=== PATIENT | female | born 1985 | race Caucasian/White ===

== ENCOUNTER 2022-06-10 16:05 | Emergency (ER) | payer OTHER, SELFPAY ==
[2022-06-10 16:17] VITALS: BP 131/77; PULSE 85; RESP 20; TEMP 36.6; O2SAT 98
[2022-06-10] MEDS: diphenhydrAMINE HCl CAP 25 MG CAPSULE PO (16:32)
[2022-06-10] MEDS: methylPREDNISolone SOD SUCC 125 MG VIAL IM (16:32)
[2022-06-10 16:49] VITALS: BP 121/71; PULSE 85; RESP 20; O2SAT 97
--- NOTE | 2022-06-10 17:12 | ED.ALLEREA ---
HPI - Allergic Reaction General Chief complaint: Allergic Reaction Stated complaint: allergic reaction, hard time breathing Time Seen by Provider: 06/10/22 16:08 Source: patient and RN notes reviewed Mode of arrival: ambulatory Limitations: no limitations History of Present Illness MD complaint: allergic reaction and hives Onset (ago): hour(s) (2) Exposure: medication Symptoms: rash and itching Severity: mild Treatment prior to arrival: benadryl Previous Allergic Reaction History: prior ED visit(s) Related Data Home Medications Medication Instructions Recorded Confirmed cetirizine 10 mg tablet (Zyrtec) 10 mg PO DAILY PRN Itching 01/28/22 06/10/22 diphenhydramine HCl 25 mg capsule 25 mg PO TID PRN Itching 06/10/22 06/10/22 (Benadryl) loratadine 10 mg tablet (Claritin) 10 mg PO DAILY 06/10/22 06/10/22 Allergies Allergy/AdvReac Type Severity Reaction Status Date / Time rabbit dander Allergy Severe Throat Verified 06/10/22 16:24 closes shut Review of Systems Review of Systems: All systems reviewed & are unremarkable except as noted in HPI and below Constitutional: Constitutional: Reports no additional constitutional complaints Eyes: Eyes: Reports no additional eye complaints ENT: Reports system reviewed and no additional complaints, except as documented Cardiovascular: Cardiovascular: Reports no additional cardiovascular complaints Respiratory: Respiratory: Reports no additional respiratory complaints Gastrointestinal: Gastrointestinal: Reports no additional gastrointestinal complaints Genitourinary: Genitourinary: Reports no additional female genitourinary complaints Musculoskeletal: Musculoskeletal: Reports no additional musculoskeletal complaints Integumentary/Breasts: Skin/Breast: Reports system reviewed and no additional complaints, except as docu Neurologic: Reports system reviewed and no additional complaints, except as documented Psychiatric: Psychiatric: Reports no additional psychiatric complaints Endocrine: Endocrine: Reports no additional endocrine complaints Hematologic/Lymphatic: Hematologic/Lymphatic: Reports no additional hematologic/lymphatic complaints Allergic/Immunologic: Allergic/Immunologic: Reports no additional allergic/immunologic complaints Comments: resolving hives. [facility] Past Medical History Medical History (Updated 06/10/22 @ 17:28 by Bianca Krishna MD) Allergic drug rash Contusion of foot including toes Surgical History Surgical History H/O removal of cyst Family History Family History Other Cerebrovascular accident Depression Diabetes mellitus Social History Social History Smoking packs per day: 0.5 Smoking cigarettes per day: 10.0 Years smoked: 15 Smoking pack-years: 7.50 Smoking status: Current every day smoker Tobacco type: cigarettes Alcohol intake: current Substance use: current Substance use type: marijuana Exam Const: General: no acute distress and well nourished Nutritional Appearance: well nourished Orientation/consciousness: patient oriented x3 Limitations: no limitations HENMT: Head: normal to inspection Ears: external ears normal, TM's normal bilaterally and EAC's normal Face/Nose/Sinus: Normal external nose present, Normal nares present, normal facial exam and sinuses nontender Face and sinus: normal facial exam and sinuses nontender Mouth: Yes Normal oral and palatal mucosa present and Yes moist mucous membranes Teeth and gingiva: dentition normal Throat: posterior oropharynx normal Eyes: Conjunctivae: conjunctivae normal Pupils: Equal, round and reactive pupils present EOM: EOMs intact bilaterally Neck: Neck: normal visual inspection, no lymphadenopathy and no meningeal signs Chest: Chest palpation & inspection: normal inspection
[2022-06-10 17:36] VITALS: BP 121/57; PULSE 87; RESP 17; TEMP 36.8; O2SAT 100
== END 2022-06-10 17:58 | disposition home or self-care (01) ==
PROVIDERS: Emergency Provider Emergency Medicine
DX: T78.40XA Allergy, unspecified, initial encounter (principal); F17.200 Nicotine dependence, unspecified, uncomplicated
CPT/HCPCS: 96372; 99283; A9270; J2930

== ENCOUNTER 2022-11-30 07:52 | Outpatient (CLI) | payer BC, SELFPAY ==
--- NOTE | ~2022-11-30 | XR_ITS ---
EXAMINATION: XR wrist RT min 3V DATE: 11/30/2022 08:06 INDICATION: Right wrist pain and numbness TECHNIQUE: Posteroanterior, ulnar deviation, oblique, and lateral views of the right wrist were obtai mary. COMPARISON: none FINDINGS: Alignment is normal. No fracture. Joint spaces are normal. Soft tissues are unremarkable. IMPRESSION: 1. Negative right wrist radiographs. Reviewed, dictated and finalized at location A.
== END 2022-11-30 07:53 | disposition home or self-care (01) ==
LOC: CHSIMG 07:55
PROVIDERS: PCP Nurse Practitioner Family; Visit Provider Orthopaedic Surgery
DX: M25.531 Pain in right wrist (principal)
CPT/HCPCS: 73110

== ENCOUNTER 2023-01-14 13:17 | Outpatient (CLI) | payer BC, SELFPAY ==
--- NOTE | 2023-01-14 14:15 | NEURO_ITS ---
Impression: # Complains of nocturnal paresthesia of hands. # No Carpal Tunnel Syndrome. 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 # Normal needle/EMG. Nerve Conduction Studies Anti Sensory Summary Table Stim Site NR Peak (ms) P-T Amp (?V) Site1 Site2 Delta-P (ms) Dist (cm) Shashank (m/s) Left Median Anti Sensory (2-3nd Digit) Wrist 3.0 87.6 Wrist 2-3nd Digit 3.0 14.0 47 Wrist 2.9 90.9 Wrist 2-3nd Digit 3.0 14.0 47 Right Median Anti Sensory (2-3nd Digit) Wrist 2.9 91.7 Wrist 2-3nd Digit 2.9 14.0 48 Wrist 2.9 79.1 Wrist 2-3nd Digit 2.9 14.0 48 Left Radial Anti Sensory (Base 1st Digit) Wrist 1.6 84.2 Wrist Base 1st Digit 1.6 0.0 Right Radial Anti Sensory (Base 1st Digit) Wrist 2.1 42.2 Wrist Base 1st Digit 2.1 0.0 Left Ulnar Anti Sensory (5th Digit) Wrist 2.3 80.0 Wrist 5th Digit 2.3 14.0 61 Right Ulnar Anti Sensory (5th Digit) Wrist 2.2 88.2 Wrist 5th Digit 2.2 14.0 64 Motor Summary Table Stim Site NR Onset (ms) O-P Amp (mV) Site1 Site2 Delta-0 (ms) Dist (cm) Shashank (m/s) Left Median Motor (Abd Poll Brev) Wrist 2.8 5.7 Elbow Wrist 5.2 28.0 54 Elbow 8.0 2.8 Right Median Motor (Abd Poll Brev) Wrist 2.7 7.9 Elbow Wrist 4.6 28.0 61 Elbow 7.3 3.6 Left Ulnar Motor (Abd Dig Minimi) Wrist 2.4 9.9 A Elbow Wrist 5.1 28.0 55 A Elbow 7.5 7.9 B Elbow Wrist 3.5 20.0 57 B Elbow 5.9 5.2 Right Ulnar Motor (Abd Dig Minimi) Wrist 2.5 4.1 A Elbow Wrist 4.9 29.0 59 A Elbow 7.4 4.2 F Wave Studies NR F-Lat (ms) L-R F-Lat (ms) Left Median (Mrkrs) (Abd Poll Brev) 25.19 1.75 Right Median (Mrkrs) (Abd Poll Brev) 23.44 1.75 Left Ulnar (Mrkrs) (Abd Dig Min) 24.40 0.73 Right Ulnar (Mrkrs) (Abd Dig Min) 23.67 0.73 EMG Side Muscle Nerve Root Ins Act Fibs Amp Dur Recrt Comment Right 1stDorInt Ulnar C8-T1 Nml Nml Nml Nml Nml Right Ext Indicis Radial (Post Int) C7-8 Nml Nml Nml Nml Nml Right Ext Digitorum Radial (Post Int) C7-8 Nml Nml Nml Nml Nml Right BrachioRad Radial C5-6 Nml Nml Nml Nml Nml Right PronatorTeres Median C6-7 Nml Nml Nml Nml Nml Right Abd Poll Brev Median C8-T1 Nml Nml Nml Nml Nml Left 1stDorInt Ulnar C8-T1 Nml Nml Nml Nml Nml Left Ext Indicis Radial (Post Int) C7-8 Nml Nml Nml Nml Nml Left Ext Digitorum Radial (Post Int) C7-8 Nml Nml Nml Nml Nml Left BrachioRad Radial C5-6 Nml Nml Nml Nml Nml Left PronatorTeres Median C6-7 Nml Nml Nml Nml Nml Left Abd Poll Brev Median C8-T1 Nml Nml Nml Nml Nml Right ABD Dig Min Ulnar C8-T1 Nml Nml Nml Nml Nml Left ABD Dig Min Ulnar C8-T1 Nml Nml Nml Nml Nml MTDD
== END 2023-01-14 13:18 | disposition home or self-care (01) ==
PROVIDERS: PCP Nurse Practitioner Family; Visit Provider Orthopaedic Surgery
DX: R20.0 Anesthesia of skin (principal); G56.22 Lesion of ulnar nerve, left upper limb
CPT/HCPCS: 95886; 95911

== ENCOUNTER 2025-01-22 12:14 | Outpatient (CLI) | payer BC, SELFPAY ==
--- NOTE | ~2025-01-22 | XR_ITS ---
Right foot Technique: AP, oblique, and lateral views were obtained. Clinical History: Injury Findings: No acute fracture or dislocation is seen. Osseous alignment is anatomic. Joint spaces are p reserved without erosive or degenerative change. Soft tissues are unremarkable. Impression: Unremarkable right foot radiographs. Reviewed, dictated and finalized at location . Impression: Unremarkable right foot radiographs.
--- NOTE | ~2025-01-22 | XR_ITS ---
Right ankle Technique: AP, oblique, and lateral views were obtained. Clinical History: Injury Findings: No acute fracture or dislocation is seen. Osseous alignment is anatomic. Ankle mortise and other visualized joint spaces are preserved. Soft tissues are otherwise unremarkable. Impression: Unremarkable right ankle. Reviewed, dictated and finalized at location . Impression: Unremarkable right ankle.
--- OUTSIDE RECORDS SUMMARY | 2025-01-22 12:17 | XMS_ITS | Clinical Summary ---
Author Organization [facility] [address] Address [address] [place] [address] Phone Care Team Providers Care Sports Physical Therapist Name Role Phone Farnaz Gely Ugarte NP Primary Care Provider [phone] Allergies No known active allergies Medications fexofenadine (KENDY) 180 mg tablet Take 1 tablet (180 mg total) by mouth daily Active levonorgestrel (MIRENA) IUD 1 each by intrauterine route once Active montelukast (SINGULAIR) 10 mg tablet 2 Active cetirizine (ZyrTEC) 10 mg tablet daily Active EPINEPHrine 0.3 mg/0.3 mL auto-injection syringe INJECT 1 SYRINGE IN THE MUSCLE ONCE DIRECTED 2 Active clindamycin (CLEOCIN T) 1 % lotion Apply topically 2 (two) times a day 60 mL 1 3 Active Additional Information Patient not taking.Reported on 09/15/2024 Active Problems No known active problems Immunizations Immunization Administration Dates Next Due Influenza, Trivalent, IM (MDV) 05/19/2018 Pneumococcal Polysaccharide PPV23 05/19/2018 Surgical History Surgery Date Site/Laterality Comments LAPAROSCOPIC TUBAL LIGATION 07/12/2010 - 07/11/2011 FISTULA REPAIR 07/12/2003 - 07/11/2004 Right thigh; probably secondary to hidradenitis suppurativa Medical History Medical History Date Comments Seasonal allergies Hidradenitis suppurativa History of condyloma acuminatum 2006 treated with TCA Abnormal Pap smear of cervix 2003 cry otherapy Positive test for herpes simplex virus (HSV) ant ibody type I; no known lesions Family History Medical History Relation Name Comments Diabetes Maternal Grandfather Breast cancer Maternal Grandmother Diabetes Maternal Grandmother Heart attack Maternal Grandmother late 40 's Hypertension Maternal Grandmother Stroke Maternal Grandmother Breast cancer Mother's Sister 30's Stroke Mother's Sister late 30's Hyperlipidemia Other both sides of the family Diabetes Paternal Grandmother Relation Name Status Comments Maternal Grandfather Maternal Grandmother Mother's Sister Other Paternal Grandmother Social History Tobacco Use Types Packs/Day Years Used Date Smoking Tobacco: Every Day E-cigarettes Passive Smoke Exposure: Never Smokeless Tobacco: Never Comments:E-Cig & cigars Alcohol Use Standard Drinks/Week Comments Yes 0 (1 standard drink = 0.6 oz pur e alcohol) weekends Comments No Sex and Gender Information Value Date Recorded Sex Assigned at Not on file Legal Sex Female 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 [employer] Gender Identity Not on file Sexual Orientation Not on file 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 Insurance Not on file Not on file Not on file Obstetrics History Para Term AB IAB SAB Ectopic Multiple Livin g Live Births 1 1 1 0 0 0 0 0 0 1 1 Date Outcome GA Total Labor Labor/2nd/3rd Weight Sex Type Anes PTL Jamia A1 A5 Name Clin Term Last Filed Vital Signs Vital Sign Reading Time Taken Comments Blood Pressure 126/70 09/15/2024 10:38 AM [employer] Pulse 87 10/04/2017 2:49 PM CDT Temperature 36.2 C (97.1 F) 07/22/2020 1:19 PM [employer] Respiratory Rate 16 06/08/2017 2:54 PM [employer] Oxygen Saturation 98% 06/08/2017 2:54 PM [employer] Inhaled Oxygen Concentration - - Weight 90.3 kg (199 lb) 09/15/2024 10:38 AM [employer] Height 174 cm (5' 8.5) 09/15/2024 10:38 AM [employer] Body Mass Index 29.82 09/15/2024 10:38 AM [employer] Plan of Treatment Health Maintenance Due Date Last Done Comments Depression Screening 1985 Hepatitis C Screening 1985 DTaP/Tdap/Td Vaccine (1 - Tdap) 1996 Varicella Vaccines (1 of 2 - 13+ 2-dose series) 1998 Hepatitis B Screening 10/19/2003 Pneumococcal vaccine <65 (2 of 2 - PCV) 05/19/2019 05/19/2018 Influenza Vaccine (#1) 2025 05/19/2018 Cervical Cancer Screening 09/15/20252024, 09/15/2024, 06/23/2018, Additional history exists Regular Well Visit/Exam 18-64 09/15/2025 09/15/2024, 08/20/2023, 07/30/2022, Additional history exists HPV Vaccines Aged Out No longer eligi ble based on patient's age to complete this topic Procedures Procedure Name Priority Date/Time Associated Diagnosis Comments HIGH RISK HPV DNA DETECTION WITH GENOTYPING Routine 09/15/2024 1:39 PM MANAGER [employer] Screening for malignant neoplasm of cervix from Last 3 Months or Most Recently Relevant to Health Maintenance Results * High Risk HPV DNA Detection with Genotyping (Molecular component) (09/15/2024 1:39 PM MANAGER [employer]UDENT [employer]) HPV HR 16 Not Detected Not Detected [facility] Comment:Testing performed by : [facility], [address] [place]., [address] HPV HR 18 Not Detected Not Detected [facility] Comment:Testing performed by : [facility], [address] [place] [address]., [address] HPV HR Non 16/18 Not Detected Not Detected [facility] Comment: Interpretive Data Nucleic acid amplification for detection of high-risk Human Papilloma virus (HPV) is performed by the Jn Izabela 6800 HPV test. This assay specifically detects HPV-16 and HPV-18 genotypes. The following HPV genotypes are detected as high-risk HPV: HPV-31, 33, 35, ,39, 45, 51, 52, 56, 58, 59, 66, and 68. This assay has been approved by the [place] Food and Drug Administration for detection of HPV in cervical specimens collected by a physician using an endocervical brush/spatula or cervical broom and placed in the ThinPrep Pap Test PreservCyt collection containers. The performance characteristics of this test have been verified by the [facility] Molecular Infectious Disease laboratory. Correlate with separately reported cytology results, as applicable. Interpretive data last revised 23 Testing performed by: [facility], [address] [facility], [place]., [address] Endocervical 09/15/2024 1:39 PM MANAGER STUDENT SERVICES 09/18/2024 2:17 PM CDT Narrative KATHERYN RIZO - 09/18/2024 8:24 PM CDT Clinical history and diagnosis->Liquid-based PAP test with high risk HPV test- Z12.4 Number of vials->1 Testing type->Screening Last menstrual period (date if known)->N/A Contraceptive use->IUD us Princess Becerril DO LAB BODY FLUIDS AND STO OLS ORDERABLES Final Result KATHERYN [address] [address] Department [place] [address] BJ from Last 3 Months or Most Recently Relevant to Health Maintenance Insurance [employer] [facility] Care Teams Sports Physical Therapist Relationship Specialty Start Date End Date Gely Osei NP [address] [place] [address] PCP - General Nurse Practitioner 01/22/25
--- OUTSIDE RECORDS SUMMARY | 2025-01-22 12:17 | XMS_ITS ---
Author Organization Count Includes [facility] [place] ([address]) Address [address] [place] [address] Care Team Providers Care Operational Trainer Name Role Phone Osei, Gely Primary Care Provider UnavailRussell Joseph Unavailable [phone] Susanne NUNEZ Unavailable Unavailable Rene Browning Unavailable [phone] REASON FOR VISIT SCIT (Aeroallergen) Social History Sex Assigned At : Social History Observation Description Sex Assigned At Female Encounters Encounter Location Date Provider Diagnosis [address] [address] 12/18/2024 Rene Browning Plan Of Treatment Next Appt Details Provider Name:Rene Browning , 01/31/2025 03:30:00 PM, [address] [employer] [address], [address], [place], [address], Provider Name:Rene Browning , 02/28/2025 03:30:00 PM, [address], [address], [place], [address], Provider Name:Alem sotelo, 04/17/2025 09:00:00 AM, [address], [address], [place], [address], Progress Notes * Ijeoma PAULADOB:1985 (39 yo F)Acc No.[id number]:12/18/2024 SCIT-Aeroallergen Patient: Ijeoma AGUILERA Provider: Hui Browning MD :1985 A ge:39 Y S ex:Female Date:12/18/2024 Address:[facility] [place], [place] Pcp:Gely Osei Subjective: * Chief Complaints: * 1 . SCIT (Aeroallergen). * Medical History: Objective: * Vitals: Assessment: Plan: * Treatment: * Billing Information: * Visit Code: * Procedure Codes: * Electronic signature of Tadeo Browning MD, FAAAAI on 01/22/2025 at 12:17 PM CDT Sign off status: Pending * Provider: Hui Browning MD Date: 12/18/2024 Generated for Larryi chuck/Adriel/eTransmitting on: 01/22/2025 12:17 PM CDT
--- OUTSIDE RECORDS SUMMARY | 2025-01-22 12:17 | XMS_ITS | Patient Health Record ---
Author Organization [facility] [place] ([address]) Address [address] [place] [address] Care Team Providers Care Crew Mess Attendant Name Role Phone Farnaz, Gely Primary Care Provider UnavailRussell Joseph Unavailable [phone] Susanne NUNEZ Unavailable Unavailable Rene Browning Unavailable [phone] Shayna Arnold Unavailable [phone] Alem Fabian Unavailable [phone] Allergies No Known Allergies Results Component Value Reference Range Notes Spirometry Reviewed date:10/23/2024 04:44:28 PM Interpretation:Normal Performing Lab: Notes/Report: Normal SpiroPreBronchodilator_FVC 3.99 SpiroPostBronchodilator_FEF25_75 0 SpiroPreBronchodilator_FEF25_75 3.63 SpiroPreBronchodilator_FEV1 3.31 SpiroPrecentPredictionPost_FEF25_75 0 SpiroPrecentPredictionPost_FEV1 0 SpiroPrecentPredictionPost_FEV1_OVER_FVC 0 SpiroPrecentPredictionPost_FVC 0 SpiroPrecentPredictionPre_FEF25_75 102.3 SpiroPrecentPredictionPre_FEV1 99.4 SpiroPrecentPredictionPre_FEV1_OVER_FVC 101.4 SpiroPrecentPredictionPre_FVC 98.5 SpiroPredicted_FEF25_75 3.55 SpiroPreBronchodilator_FEV1_OVER_FVC 83.04 SpiroPreBronchodilator_PEF 5.42 SpiroPostBronchodilator_FVC 0 SpiroPostBronchodilator_FEV1 0 SpiroPostBronchodilator_FEV1_OVER_FVC 0 SpiroPostBronchodilator_PEF 0 SpiroPredicted_FVC 4.05 SpiroPredicted_FEV1 3.33 SpiroPredicted_FEV1_OVER_FVC 81.86 SpiroPredicted_PEF 6.75 Reason For Referral No Information Medications Medication SIG (Take, Route, Frequency, Duration) Notes Start Date End Date Status TRIAMCINOLONE ACETONIDE TOPICAL 0.1% 1 matt applied topically 3 times a day; Duration: 7 day(s) 05/11/2022 Not-Taking FAMOTIDINE 40 mg 1 tab(s) orally 30 mins prior to SCIT; Duration: 30 days Not-Taking SIT (TRADITIONAL) variable per schedule SC per schedule; Duration: to be determined Active Famotidine 40 MG 1 tab(s) orally 30 mins prior to SCIT; Duration: 30 days Not-Taking NASAL WASHES N/A as directed intranasally as needed; Duration: 30 Active Cetirizine HCl 10 MG 1 tab(s) orally once a day; Duration: 30 days Not-Taking EpiPen 2-Roshni 0.3 MG/0.3ML as directed intramuscularly once; Duration: 30 day(s) 06/17/2022 Active SIT (CLUSTER) VARIABLE PER SCHEDULE SC PER SCHEDULE; Duration: TO BE DETERMINED *Please review for potential replacement for e-prescription and drug interaction check* 05/04/2022 Active Albuterol Sulfate HFA 108 (90 Base) MCG/ACT INHALE 2 PUFFS BY MOUTH EVERY 6 HOURS; Duration: 25 Active SIT (TRADITIONAL) VARIABLE PER SCHEDULE SC PER SCHEDULE; Duration: TO BE DETERMINED *Please review for potential replacement for e-prescription and drug interaction check* 09/22/2022 Active Cetirizine HCl 10 MG 1 tab(s) orally twice a day; Duration: 30 days Active KENDY-D 24 HOUR ALLERGY AND CONGESTION 180 MG-240 MG 1 TAB(S) ORALLY ONCE A DAY *Please review for potential replacement for e-prescription and drug interaction check* Not-Taking Olopatadine HCl 0.6 % 2 sprays in each nostril Nasally Twice a day; Duration: 30 days Active Triamcinolone Acetonide 0.1 % 1 matt applied topically 3 times a day; Duration: 7 day(s) 05/11/2022 Not-Taking Auvi-Q 0.3 MG/0.3ML as directed intramuscularly once; Duration: 30 days Active Fluticasone Propionate 50 MCG/ACT 2 spray(s) in each nostril BID; Duration: 30 day(s) Active Montelukast Sodium 10 MG 1 tab(s) orally once a day; Duration: 90 days Active Montelukast Sodium 10 MG 1 tab(s) orally once a day; Duration: 90 days Not-Taking PEPCID 20 mg 1 tab(s) orally 2 times a day; Duration: 30 days Not-Taking CETIRIZINE 10 mg 1 tab(s) orally twice a day; Duration: 30 days Not-Taking AUVI -Q 0.3 mg as directed intramuscularly once; Duration: 30 days Active PEPCID 20 mg 1 tab(s) orally 2 times a day; Duration: 30 days Active CETIRIZINE 10 mg 1 tab(s) orally twice a day; Duration: 30 days Active OLOPATADINE NASAL 665 MCG/INH 2 SPRAY(S) INTRANASALLY 2 TIMES A DAY; Duration: 30 DAYS *Please review for potential replacement for e-prescription and drug interaction check* Not-Taking AEROCHAMBER MDI SPACER - MOUTHPIECE (ADULT) N/A As directed PO Per asthma action plan; Duration: 30 day(s) Active OLOPATADINE NASAL 665 MCG/INH 2 SPRAY(S) INTRANASALLY 2 TIMES A DAY; Duration: 30 DAYS *Please review for potential replacement for e-prescription and drug interaction check* Not-Taking FLUTICASONE NASAL 50 mcg/inh 2 spray(s) in each nostril BID; Duration: 30 day(s) Active MONTELUKAST 10 mg 1 tab(s) orally once a day; Duration: 90 days Active CETIRIZINE 10 mg 1 tab(s) orally once a day; Duration: 30 days Not-Taking Pepcid 20 mg 1 tab(s) orally 2 times a day; Duration: 30 days Active FLUTICASONE NASAL 50 mcg/inh 2 spray(s) in each nostril BID; Duration: 30 day(s) Not-Taking MONTELUKAST 10 mg 1 tab(s) orally once a day; Duration: 90 days Not-Taking ALBUTEROL (EQV-PROAIR HFA) 90 mcg/inh 2 puff(s) inhaled every 6 hours; Duration: 30 days Active MONTELUKAST 10 mg 1 tab(s) orally once a day; Duration: 90 days Not-Taking EPIPEN 2-ROSHNI 0.3 mg as directed intramuscularly once; Duration: 30 day(s) 06/17/2022 Not-Taking Social History Tobacco Use: Social History Observation Description Date Details (start date - stop date) Former Smoker NA - NA Sex Assigned At : Social History Observation Description Sex Assigned At Female Smoking Smart Form: Question Answer Notes Are you a: former smoker How long it has been since you last smoked? 1-3 months Tobacco Control (Standard) Question Answer Notes Tobacco use: Former smoker Problems Problem Type SNOMED Code ICD Code Onset Dates Problem Status W/U Status Risk Notes Problem Chronic allergic conjunctivitis (92269597) Other chronic allergic conjunctivitis (H10.45) Active confirmed Problem Allergic rhinitis caused by pollen (disorder) (86945614) Allergic rhinitis due to pollen (J30.1) Active confirmed Problem Allergic rhinitis (62571932) Other allergic rhinitis (J30.89) Active confirmed Problem Allergic urticaria (96962116) Allergic urticaria (L50.0) Active confirmed Problem Dysphagia (27202879) Dysphagia, unspecified (R13.10) Active confirmed Problem Allergic rhinitis caused by pollen (disorder) (55291185) Allergic rhinitis due to pollen (J30.1) Active confirmed Problem Allergic rhinitis caused by animal hair and dander (482262982671581) Allergic rhinitis due to animal (cat) (dog) hair and dander (J30.81) Active confirmed Problem Allergic rhinitis (77472590) Other allergic rhinitis (J30.89) Active confirmed Problem Chronic allergic conjunctivitis (96848417) Other chronic allergic conjunctivitis (H10.45) Active confirmed Problem Elevated blood pressure reading without diagnosis of hypertension (352489723) Elevated blood-pressure reading, without diagnosis of hypertension (R03.0) Active confirmed Problem Tobacco use (220860350) Tobacco use (Z72.0) Active confirmed Problem Cough (finding) (75619058) Cough, unspecified (R05.9) Active confirmed Vital Signs Blood pressure diastolic 86 mm Hg 10/23/2024 Oximetry 98 % 10/23/2024 Height 68 in 10/23/2024 Blood pressure systolic 133 mm Hg 10/23/2024 Weight 196.6 lbs 10/23/2024 BMI 29.89 kg/m2 10/23/2024 Encounters Encounter Location Date Provider Diagnosis [address] [address] 01/24/2024 Rene Nam Allergic rhinitis du e to pollen J30.1 ; Other allergic rhinitis J30.89 ; Allergic rhinitis due to animal (cat) (dog) hair and dander J30.81 and Other chronic allergic conjunctivitis H10.[address] [address] 02/14/2024 Rene Nam Allergic rhinitis du e to pollen J30.1 ; Other allergic rhinitis J30.89 ; Allergic rhinitis due to animal (cat) (dog) hair and dander J30.81 and Other chronic allergic conjunctivitis H10.[address] [address] 03/06/2024 Renealex Browning Allergic rhinitis du e to pollen J30.1 ; Other allergic rhinitis J30.89 ; Allergic rhinitis due to animal (cat) (dog) hair and dander J30.81 and Other chronic allergic conjunctivitis H10.45 [facility] [address] [place] [phone] 03/27/2024 Rene Nam Allergic rhinitis du e to pollen J30.1 ; Other allergic rhinitis J30.89 ; Allergic rhinitis due to animal (cat) (dog) hair and dander J30.81 and Other chronic allergic conjunctivitis H10.[address] [address] 04/17/2024 Rene Browning Allergic rhinitis du e to pollen J30.1 ; Other allergic rhinitis J30.89 ; Allergic rhinitis due to animal (cat) (dog) hair and dander J30.81 and Other chronic allergic conjunctivitis H10.[address] [address] 05/08/2024 Rene Browning Allergic rhinitis du e to pollen J30.1 ; Other allergic rhinitis J30.89 ; Allergic rhinitis due to animal (cat) (dog) hair and dander J30.81 and Other chronic allergic conjunctivitis H10.45 [facility] [address] [place] [phone] 05/29/2024 Rene Nam Allergic rhinitis du e to pollen J30.1 ; Other allergic rhinitis J30.89 ; Allergic rhinitis due to animal (cat) (dog) hair and dander J30.81 and Other chronic allergic conjunctivitis H10.45 [facility] [address] [place] [phone] 06/19/2024 Russell Nunez Allergic rhinitis du e to pollen J30.1 ; Allergic rhinitis due to animal (cat) (dog) hair and dander J30.81 ; Other allergic rhinitis J30.89 ; Other chronic allergic conjunctivitis H10.45 ; Allergic urticaria L50.0 ; Cough, unspecified R05.9 ; Dysphagia, unspecified R13.10 and Elevated blood-pressure reading, without diagnosis of hypertension R03.0 [facility] [address] [place] [phone] 07/31/2024 Rene Nam Allergic rhinitis du e to pollen J30.1 ; Other allergic rhinitis J30.89 ; Allergic rhinitis due to animal (cat) (dog) hair and dander J30.81 and Other chronic allergic conjunctivitis H10.45 [facility] [address] [place] [phone] 08/21/2024 Ernealex Browning Allergic rhinitis du e to pollen J30.1 ; Other allergic rhinitis J30.89 ; Allergic rhinitis due to animal (cat) (dog) hair and dander J30.81 and Other chronic allergic conjunctivitis H10.45 [facility] [address] [place] [phone] 09/18/2024 Rene Browning Allergic rhinitis du e to pollen J30.1 ; Other allergic rhinitis J30.89 ; Allergic rhinitis due to animal (cat) (dog) hair and dander J30.81 and Other chronic allergic conjunctivitis H10.45 [facility] [address] [place] [phone] 10/03/2024 Rene Browning Allergic rhinitis du e to pollen J30.1 ; Other allergic rhinitis J30.89 ; Allergic rhinitis due to animal (cat) (dog) hair and dander J30.81 and Other chronic allergic conjunctivitis H10.45 [facility] [address] [place] [address] [address] [address] 10/09/2024 Rene Browning Allergic rhinitis du e to pollen J30.1 ; Other allergic rhinitis J30.89 ; Allergic rhinitis due to animal (cat) (dog) hair and dander J30.81 and Other chronic allergic conjunctivitis H10.45 [facility] [address] [place] [phone] 10/16/2024 Rene Browning Allergic rhinitis du e to pollen J30.1 ; Other allergic rhinitis J30.89 ; Allergic rhinitis due to animal (cat) (dog) hair and dander J30.81 and Other chronic allergic conjunctivitis H10.45 [facility] [address] [place] [phone] 10/23/2024 Russell Nunez Allergic rhinitis du e to pollen J30.1 ; Allergic rhinitis due to animal (cat) (dog) hair and dander J30.81 ; Other allergic rhinitis J30.89 ; Other chronic allergic conjunctivitis H10.45 ; Allergic urticaria L50.0 ; Cough, unspecified R05.9 ; Dysphagia, unspecified R13.10 and Elevated blood-pressure reading, without diagnosis of hypertension R03.0 [facility] [address] [place] [phone] 11/13/2024 Rene Browning Allergic rhinitis du e to pollen J30.1 ; Other allergic rhinitis J30.89 ; Allergic rhinitis due to animal (cat) (dog) hair and dander J30.81 and Other chronic allergic conjunctivitis H10.45 [facility] [address] [place] [phone] 12/05/2024 Rene Browning Allergic rhinitis du e to pollen J30.1 ; Other allergic rhinitis J30.89 ; Allergic rhinitis due to animal (cat) (dog) hair and dander J30.81 and Other chronic allergic conjunctivitis H10.45 [facility] [address] [place] [phone] 01/03/2025 Rene Browning Allergic rhinitis du e to pollen J30.1 ; Other allergic rhinitis J30.89 ; Allergic rhinitis due to animal (cat) (dog) hair and dander J30.81 and Other chronic allergic conjunctivitis H10.45 [facility] [address] [place] [address] 10/16/2024 [facility] [address] [place] [address] 11/09/2024 [facility] [address] [place] [address] 12/27/2024 Alem Fabian Allergic urticaria L50.0 Assessments Encounter Date Diagnosis (ICD Code) Assessment Notes Treatment Notes Treatment Clinical Notes Section Notes 01/24/2024 Allergic rhinitis due to pollen (ICD-10 - J30.1) 02/14/2024 Allergic rhinitis due to pollen (ICD-10 - J30.1) 03/06/2024 Allergic rhinitis due to pollen (ICD-10 - J30.1) 03/27/2024 Allergic rhinitis due to pollen (ICD-10 - J30.1) 04/17/2024 Allergic rhinitis due to pollen (ICD-10 - J30.1) 05/08/2024 Allergic rhinitis due to pollen (ICD-10 - J30.1) 05/29/2024 Allergic rhinitis due to pollen (ICD-10 - J30.1) 06/19/2024 Allergic rhinitis due to pollen (ICD-10 - J30.1) Ijeoma clearly suffers from atopic disease based upon our skin testing. Accordingly, we have introduced a new, aggressive medication regimen, discussed nasal washes and allergy-specific avoidance measures. Tolerated dosing with minimal issue. At MM dosing Keep AIE on hand 2 hours after each SCIT visit. Overall with clear benefit since starting SCIT; on MM for approx 1.5 years. Return in per schedule for SCIT and 3 months for E&M 06/19/2024 Allergic rhinitis due to animal (cat) (dog) hair and dander (ICD-10 - J30.81) Follow allergen avoidance, meds and continue SCIT as an adjunctive treatment to current regimen 07/31/2024 Allergic rhinitis due to pollen (ICD-10 - J30.1) 08/21/2024 Allergic rhinitis due to pollen (ICD-10 - J30.1) 09/18/2024 Allergic rhinitis due to pollen (ICD-10 - J30.1) 10/03/2024 Allergic rhinitis due to pollen (ICD-10 - J30.1) 10/09/2024 Allergic rhinitis due to pollen (ICD-10 - J30.1) 10/16/2024 Allergic rhinitis due to pollen (ICD-10 - J30.1) 10/23/2024 Allergic rhinitis due to pollen (ICD-10 - J30.1) Ijeoma clearly suffers from atopic disease based upon our skin testing. Accordingly, we have introduced a new, aggressive medication regimen, discussed nasal washes and allergy-specific avoidance measures. Tolerated dosing with minimal issue.Noted icnreased congestion for the past few weeks. At MM dosing Keep AIE on hand 2 hours after each SCIT visit. Overall with clear benefit since starting SCIT; on MM for approx 2 years. Return in per schedule for SCIT and 6 months for E&M 10/23/2024 Allergic rhinitis due to animal (cat) (dog) hair and dander (ICD-10 - J30.81) Follow allergen avoidance, meds and continue SCIT as an adjunctive treatment to current regimen 11/13/2024 Allergic rhinitis due to pollen (ICD-10 - J30.1) 12/05/2024 Allergic rhinitis due to pollen (ICD-10 - J30.1) 12/27/2024 Allergic urticaria (ICD-10 - L50.0) 01/03/2025 Allergic rhinitis due to pollen (ICD-10 - J30.1) 12/05/2024 Other allergic rhinitis (ICD-10 - J30.89) 01/03/2025 Other allergic rhinitis (ICD-10 - J30.89) 11/13/2024 Other allergic rhinitis (ICD-10 - J30.89) 10/23/2024 Other allergic rhinitis (ICD-10 - J30.89) Follow allergen avoidance, meds and continue SCIT as an adjunctive treatment to current regimen 10/16/2024 Other allergic rhinitis (ICD-10 - J30.89) 10/09/2024 Other allergic rhinitis (ICD-10 - J30.89) 10/03/2024 Other allergic rhinitis (ICD-10 - J30.89) 09/18/2024 Other allergic rhinitis (ICD-10 - J30.89) 08/21/2024 Other allergic rhinitis (ICD-10 - J30.89) 07/31/2024 Other allergic rhinitis (ICD-10 - J30.89) 06/19/2024 Other allergic rhinitis (ICD-10 - J30.89) Follow allergen avoidance, meds and continue SCIT as an adjunctive treatment to current regimen 05/29/2024 Other allergic rhinitis (ICD-10 - J30.89) 05/08/2024 Other allergic rhinitis (ICD-10 - J30.89) 04/17/2024 Other allergic rhinitis (ICD-10 - J30.89) 03/27/2024 Other allergic rhinitis (ICD-10 - J30.89) 03/06/2024 Other allergic rhinitis (ICD-10 - J30.89) 02/14/2024 Other allergic rhinitis (ICD-10 - J30.89) 01/24/2024 Other allergic rhinitis (ICD-10 - J30.89) 01/24/2024 Allergic rhinitis due to animal (cat) (dog) hair and dander (ICD-10 - J30.81) 02/14/2024 Allergic rhinitis due to animal (cat) (dog) hair and dander (ICD-10 - J30.81) 03/06/2024 Allergic rhinitis due to animal (cat) (dog) hair and dander (ICD-10 - J30.81) 03/27/2024 Allergic rhinitis due to animal (cat) (dog) hair and dander (ICD-10 - J30.81) 04/17/2024 Allergic rhinitis due to animal (cat) (dog) hair and dander (ICD-10 - J30.81) 05/08/2024 Allergic rhinitis due to animal (cat) (dog) hair and dander (ICD-10 - J30.81) 06/19/2024 Other chronic allergic conjunctivitis (ICD-10 - H10.45) Given ocular signs and symptoms I encouraged allergy avoidance measures and meds as above. If symptoms persist, consider adding additional medications including intraocular antihistamine/mast cell stabilizer, PRN and continue SCIT as an adjunctive measure 05/29/2024 Allergic rhinitis due to animal (cat) (dog) hair and dander (ICD-10 - J30.81) 07/31/2024 Allergic rhinitis due to animal (cat) (dog) hair and dander (ICD-10 - J30.81) 08/21/2024 Allergic rhinitis due to animal (cat) (dog) hair and dander (ICD-10 - J30.81) 09/18/2024 Allergic rhinitis due to animal (cat) (dog) hair and dander (ICD-10 - J30.81) 10/03/2024 Allergic rhinitis due to animal (cat) (dog) hair and dander (ICD-10 - J30.81) 10/09/2024 Allergic rhinitis due to animal (cat) (dog) hair and dander (ICD-10 - J30.81) 10/23/2024 Other chronic allergic conjunctivitis (ICD-10 - H10.45) Given ocular signs and symptoms I encouraged allergy avoidance measures and meds as above. If symptoms persist, consider adding additional medications including intraocular antihistamine/mast cell stabilizer, PRN and continue SCIT as an adjunctive measure 10/16/2024 Allergic rhinitis due to animal (cat) (dog) hair and dander (ICD-10 - J30.81) 11/13/2024 Allergic rhinitis due to animal (cat) (dog) hair and dander (ICD-10 - J30.81) 01/03/2025 Allergic rhinitis due to animal (cat) (dog) hair and dander (ICD-10 - J30.81) 12/05/2024 Allergic rhinitis due to animal (cat) (dog) hair and dander (ICD-10 - J30.81) 01/03/2025 Other chronic allergic conjunctivitis (ICD-10 - H10.45) 12/05/2024 Other chronic allergic conjunctivitis (ICD-10 - H10.45) 11/13/2024 Other chronic allergic conjunctivitis (ICD-10 - H10.45) 10/23/2024 Allergic urticaria (ICD-10 - L50.0) Recurring episodes of urticaria only in the setting of touching her dogs at home. She denies any other triggers or history of facial swelling. She has not have hives outside the setting of touching her dogs outside of an episode as a child after touching a rabbit. Given continued breakthrough, actually worse this past summer, we started 4x FDA approved dosing of antihistamines with benefit. Otherwise continue to journal for potential triggers 10/16/2024 Other chronic allergic conjunctivitis (ICD-10 - H10.45) 10/09/2024 Other chronic allergic conjunctivitis (ICD-10 - H10.45) 10/03/2024 Other chronic allergic conjunctivitis (ICD-10 - H10.45) 09/18/2024 Other chronic allergic conjunctivitis (ICD-10 - H10.45) 08/21/2024 Other chronic allergic conjunctivitis (ICD-10 - H10.45) 07/31/2024 Other chronic allergic conjunctivitis (ICD-10 - H10.45) 06/19/2024 Allergic urticaria (ICD-10 - L50.0) Recurring episodes of urticaria only in the setting of touching her dogs at home. She denies any other triggers or history of facial swelling. She has not have hives outside the setting of touching her dogs outside of an episode as a child after touching a rabbit. Given continued breakthrough, actually worse this past summer, we started 4x FDA approved dosing of antihistamines with benefit. Otherwise continue to journal for potential triggers 05/29/2024 Other chronic allergic conjunctivitis (ICD-10 - H10.45) 05/08/2024 Other chronic allergic conjunctivitis (ICD-10 - H10.45) 04/17/2024 Other chronic allergic conjunctivitis (ICD-10 - H10.45) 03/27/2024 Other chronic allergic conjunctivitis (ICD-10 - H10.45) 03/06/2024 Other chronic allergic conjunctivitis (ICD-10 - H10.45) 02/14/2024 Other chronic allergic conjunctivitis (ICD-10 - H10.45) 01/24/2024 Other chronic allergic conjunctivitis (ICD-10 - H10.45) 06/19/2024 Cough, unspecified (ICD-10 - R05.9) Cough in relation to AM PND and perceived aeroallergen triggers. No other SOB or wheezing. Noted 10 pack/year smoking history. He has used SIMONE in the past only in the setting of lower airway infections. She reports pneumonia occurring last in Summer 2019 and was treated with Abx then. Unsure if CXR was performed at the time. Spirometry at initial visit showed decreased FEV1%. Post BD without significant reverability though this does not preclude RAD. Clear blunting on inspiration concerning for VCD also noted on last spiromtery. Of note, she does reports recurrent SOB with inspiration. Since starting VCD exercises, she does report benefit.I suspect VCD is the primary cultrip but given SOB with exertion and smoking history, may want to have cardiac work-up with PCP. If issues persist would consider referral to [facility] for concern of VCD but she would like to hold off for now. Ocerall reprots minimal lower airway syptoms at the moment with minimal SIMONE use. Will plan on returning in the Spring to obtain spiromtery at the time. Continue PRN VCD exercises 10/23/2024 Cough, unspecified (ICD-10 - R05.9) Cough in relation to AM PND and perceived aeroallergen triggers. No other SOB or wheezing. Noted 10 pack/year smoking history. He has used SIMONE in the past only in the setting of lower airway infections. She reports pneumonia occurring last in Summer 2019 and was treated with Abx then. Unsure if CXR was performed at the time. Spirometry at initial visit showed decreased FEV1%. Post BD without significant reverability though this does not preclude RAD. Clear blunting on inspiration concerning for VCD also noted on last spiromtery. Of note, she does reports recurrent SOB with inspiration. Since starting VCD exercises, she does report benefit.I suspect VCD is the primary cultrip but given SOB with exertion and smoking history, may want to have cardiac work-up with PCP. If issues persist would consider referral to [facility] for concern of VCD but she would like to hold off for now. Ocerall reprots minimal lower airway syptoms at the moment with minimal SIMONE use. Spirometry is otherwise normal today. Continue PRN VCD exercises 06/19/2024 Dysphagia, unspecified (ICD-10 - R13.10) Reported dysphagia with sold foods. Reports father has history of esophageal cancer and is concerned given smoking history as well. Would consider establishing with GI 10/23/2024 Dysphagia, unspecified (ICD-10 - R13.10) Reported dysphagia with sold foods. Reports father has history of esophageal cancer and is concerned given smoking history as well. Would consider establishing with GI 06/19/2024 Elevated blood-pressure reading, without diagnosis of hypertension (ICD-10 - R03.0) BP elevated today without symptoms of urgency or emergency. Continue serial checks and follow-up with PCP 10/23/2024 Elevated blood-pressure reading, without diagnosis of hypertension (ICD-10 - R03.0) BP elevated today without symptoms of urgency or emergency. Continue serial checks and follow-up with PCP 06/19/2024 Other 10/23/2024 Other Plan Of Treatment Next Appt Details Provider Name:Rene Browning , 01/31/2025 03:30:00 PM, [address], [address], Provider Name:Rene Browning , 02/28/2025 03:30:00 PM, [address], [address], [place], [address], Provider Name:Alem sotelo, 04/17/2025 09:00:00 AM, [address], [address] [facility], [place], [address], Insurance Providers Payer Name Payer Address Payer Phone Subscriber Number Group Number Insured Name Patient Relationship to Insured Coverage Start Date Coverage End Date [facility] (Fabienne ) [address] [place] [address] [id number] Ijeoma Treadwell Self - patient is the insured Medical (General) History Medical History History ICD Code Allergic rhinitis due to pollen J30.1 Allergic rhinitis due to animal (cat) (d og) hair and dander J30.81 Other allergic rhinitis J30.89 Other chronic allergic conjunctivitis H1 0.45 Allergic urticaria L50.0 Tobacco use Z72.0 Elevated blood-pressure reading, without diagnosis of hypertension R03.0 Cough, unspecified R05.9 Surgical History Surgery Date(Month/Year) tubal ligation Cyst Removal Hospitalization History Reason Date(Month/Year) SEE SURGICAL HX
--- OUTSIDE RECORDS SUMMARY | 2025-01-22 12:17 | XMS_ITS | Referral Summary ---
Author Organization [facility] [address] Address [address] [place] [address] Phone Care Team Providers Care Level Vial Inside Grinder Name Role Phone FarnazLanceGelyannel Ugarte NP Primary Care Provider Allergies No known active allergies Medications fexofenadine [...] IM (MDV) 05/19/2018 Pneumococcal Polysaccharide PPV23 05/19/2018 Social History Tobacco Use Types Packs/Day Years Used Date Smoking Tobacco: Every Day E-cigarettes Passive Smoke Exposure: Never Smokeless Tobacco: Never Comments:E-Cig & cigars Alcohol Use Standard Drinks/Week Comments Yes 0 (1 standard drink = 0.6 oz pur e alcohol) weekends Comments No Sex and Gender Information Value Date Recorded Sex Assigned at Not on file Legal Sex 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3 kg (199 lb) 09/15/2024 10:38 AM 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 MANAGER Height 174 cm (5' 8.5) 09/15/2024 10:38 AM 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 MANAGER Body Mass Index 29.82 09/15/2024 10:38 AM 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 MANAGER Plan of Treatment Not on file Procedures Procedure Name Priority Date/Time Associated Diagnosis Comments HIGH RISK HPV DNA DETECTION WITH GENOTYPING Routine 09/15/2024 1:39 PM 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 MANAGER Screening for malignant neoplasm of cervix from Last 3 Months or Most Recently Relevant to Health Maintenance Results * High Risk HPV DNA Detection with Genotyping (Molecular component) (09/15/2024 1:39 PM 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 MANAGER) HPV HR 16 Not Detected Not Detected [facility] Comment:Testing performed by : [facility], [address] [place]., [address] HPV HR 18 Not Detected Not Detected [facility] Comment:Testing performed by : [facility], [address] [place]., [address] HPV HR Non 16/18 Not Detected Not Detected [facility] Comment: Interpretive Data Nucleic acid amplification for [...] this test have been verified by the [facility] laboratory. Correlate with separately reported cytology results, as applicable. Interpretive data last revised 23 Testing performed by: [facility], [address] [place]., [address] Endocervical 09/15/2024 1:39 PM 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 MANAGER 09/18/2024 2:17 PM CDT Narrative KATHERYN - 09/18/2024 8:24 PM CDT Clinical history and diagnosis->Liquid-based PAP test with high risk HPV test- Z12.4 Number of vials->1 Testing type->Screening Last menstrual period (date if known)->N/A Contraceptive use->IUD us Princess Becerril DO LAB BODY FLUIDS AND STO OLS ORDERABLES Final Result [facility] [address] Department [place] [address] [facility] from Last 3 Months or Most Recently Relevant to Health Maintenance Insurance [employer] Care Teams Level Vial Inside Grinder Relationship Specialty Start Date End Date Gely Osei NP [address] [place] [address] PCP - General Nurse Practitioner 01/22/25
== END 2025-01-22 12:15 | disposition home or self-care (01) ==
LOC: ANHASCIMG 12:15 → ANHBWCIMG 12:17
PROVIDERS: PCP Nurse Practitioner Family; Visit Provider Orthopaedic Surgery
DX: M25.571 Pain in right ankle and joints of right foot (principal); M79.671 Pain in right foot
CPT/HCPCS: 73610; 73630

== ENCOUNTER 2025-02-26 14:59 | Outpatient (RCR) | payer BC, SELFPAY ==
--- NOTE | 2025-02-26 15:51 | OPREHPOC ---
Outpatient Therapy Plan of Care This is a Multidisciplinary Plan of Care that may contain components documented by all disciplines (PT, OT, and ST.) PT Problem 1 PT Problem #1 Knowledge Deficit PT Goal 1 Goal / Goal Update independent and compliant with HEP Target Visit 6 PT Problem 2 PT Problem #2 Pain PT Goal 1 Goal / Goal Update decrease pain at worst to 3/10 or less in the R ankle Target Visit 12 PT Problem 3 PT Problem #3 Impaired Range of Motion PT Goal 1 Goal / Goal Update 15 degrees or better active R ankle DF 60 degrees or better active R ankle PF 10 degrees or better active R ankle EV 20 degrees or better active R ankle IV Target Visit 12 PT Problem 4 PT Problem #4 Impaired Strength PT Goal 1 Goal / Goal Update 4+/5 or better R ankle strength Target Visit 12 PT Problem 5 PT Problem #5 Impaired Functional Mobility PT Goal 1 Goal / Goal Update patient to DC use of all ankle stability devices patient to ambulate with normal gait mechanics LEFS to display 30% or less functional deficits Target Visit 12
--- NOTE | 2025-02-26 15:51 | PTOPEVAL1 ---
Assessment and note entered by JT File, PT Evaluation Information Assessment Status Evaluation ICD-10 Condition Codes (PT) Pain in right ankle and joints of right foot M25. 571 Onset 12/14/24 Subjective Information patient reports she is coming to PT after rolling her ankle back on 12/14/24. she reports about a month after this incident she rolled it again when stepping down a concrete step. she reports she has multiple tears in the ligaments surrounding the ankle. she reports she she has had 4 fractures in the past on the r foot. she reports she has increased pain in the R ankle with standing, walking, steps. Reported Pain Level Pain Score 5: Self Report Assessment PT Clinical Summary mrs. weiss presents to skilled PT services for evaluation and treatment of R ankle pain. she presents with pain in the medial and lateral R ankle from several instability incidents. she displays signs and symptoms of chronic instability and ankle ligament damage. continued skilled PT is indicated to improve her objective/functional deficits and return to her prior level functional activity performance/quality of life. Plan of Care Interventions Electrical Stimulation,Gait Training,Hot Pack/Cold Pack,Manual Therapy,Neuro Re-education,Patient/ Caregiver Education,Therapeutic Activities, Therapeutic Exercise PT Services Indicated Yes Treatment Frequency and 3x weekly for 12 visits Duration These treatments will address the objective and functional deficits as defined above. The patient will be advanced safely and appropriately in order for the patient to progress towards his/her prior level of function. Additional exercises will be introduced and as well as a comprehensive home exercise program upon discharge, if needed, ?to ensure carryover of functional gains achieved in the clinic. This treatment plan has been reviewed and agreement upon by the patient.
--- NOTE | 2025-03-19 08:39 | OPREHPOC ---
Outpatient Therapy Plan of Care This is a Multidisciplinary Plan of Care that may contain components documented by all disciplines (PT, OT, and ST.) PT Problem 1 PT Problem #1 Knowledge Deficit PT Goal 1 Goal / Goal Update independent and compliant with HEP Target Visit 6 Progress Met PT Problem 2 PT Problem #2 Pain PT Goal 1 Goal / Goal Update decrease pain at worst to 3/10 or less in the R ankle Target Visit 12 PT Problem 3 PT Problem #3 Impaired Range of Motion PT Goal 1 Goal / Goal Update 15 degrees or better active R ankle DF 60 degrees or better active R ankle PF. met 10 degrees or better active R ankle EV 30 degrees or better active R ankle IV. met Target Visit 12 Progress Partially Met PT Problem 4 PT Problem #4 Impaired Strength PT Goal 1 Goal / Goal Update 4+/5 or better R ankle strength Target Visit 12 Progress Partially Met PT Problem 5 PT Problem #5 Impaired Functional Mobility PT Goal 1 Goal / Goal Update patient to DC use of all ankle stability devices. met patient to ambulate with normal gait mechanics LEFS to display 30% or less functional deficits Target Visit 12 Progress Partially Met
--- NOTE | 2025-03-19 08:39 | PTOPPROGNS ---
Assessment and note entered by JT File, PT Evaluation Information Assessment Status Progress ICD-10 Condition Codes (PT) Pain in right ankle and joints of right foot M25. 571 Onset 12/14/24 Subjective Information patient reports she has little pain today. in general, it is better. she reports has no had to wear the ankle stability devices but one time in the last week or more. she reports she is compliant with her HEP at home. Assessment PT Clinical Summary mrs. weiss presents to skilled PT today for her 10th skilled PT visit for the R ankle. she presents today with improve strength and rom of the R ankle. however, still some pain and instability. she has mad progress towards and met several goals for skilled PT thus far. continued skilled PT is indicated to improve her objective/ functional deficits and achieve remaining goals. Plan of Care Interventions Electrical Stimulation,Gait Training,Hot Pack/Cold Pack,Manual Therapy,Neuro Re-education,Patient/ Caregiver Education,Therapeutic Activities, Therapeutic Exercise PT Services Indicated Yes Treatment Frequency and continue per initial POC Duration These treatments will address the objective and functional deficits as defined above. The patient will be advanced safely and appropriately in order for the patient to progress towards his/her prior level of function. Additional exercises will be introduced and as well as a comprehensive home exercise program upon discharge, if needed, ?to ensure carryover of functional gains achieved in the clinic. This treatment plan has been reviewed and agreement upon by the patient.
--- NOTE | 2025-03-23 10:59 | OPREHPOC ---
Outpatient Therapy Plan of Care This is a Multidisciplinary Plan of Care that may contain components documented by all disciplines (PT, OT, and ST.) PT Problem 1 PT Problem #1 Knowledge Deficit PT Goal 1 Goal / Goal Update independent and compliant with HEP Target Visit 6 Progress Met PT Problem 2 PT Problem #2 Pain PT Goal 1 Goal / Goal Update decrease pain at worst to 3/10 or less in the R ankle Target Visit 12 Progress Met PT Problem 3 PT Problem #3 Impaired Range of Motion PT Goal 1 Goal / Goal Update 15 degrees or better active R ankle DF -not met 60 degrees or better active R ankle PF. -met 10 degrees or better active R ankle EV -met 30 degrees or better active R ankle IV. -met Target Visit 12 Progress Partially Met PT Problem 4 PT Problem #4 Impaired Strength PT Goal 1 Goal / Goal Update 4+/5 or better R ankle strength -met for all except plantarflexion Target Visit 12 Progress Met PT Problem 5 PT Problem #5 Impaired Functional Mobility PT Goal 1 Goal / Goal Update patient to DC use of all ankle stability devices. -met patient to ambulate with normal gait mechanics - met LEFS to display 30% or less functional deficits - not met Target Visit 12 Progress Partially Met
--- NOTE | 2025-03-23 10:59 | PTOPDC ---
Assessment and note entered by Yolanda Vega, PT Evaluation Information Assessment Status Discharge ICD-10 Condition Codes (PT) Pain in right ankle and joints of right foot M25. 571 Onset 12/14/24 Subjective Information Ijeoma reports her pain is 2/10 at worst and she's continued to do her HEP. She has been doing yard work and working shifts at her job while wearing the brace and she hasn't had any issues. While she does still have pain occasionally, she feels good enough to continue rehab on her own. Reported Pain Level Pain Score 0: Self Report Assessment PT Clinical Summary Mrs. Maher has attended 12 skilled PT visits following R ankle sprain. She demonstrates good improvement in her R ankle strength and ROM and while she does still have pain occasionally, she is independent in her HEP and feels confident in being able to manage her pain on her own with bracing and exercise. She has met or partially met all therapeutic goals and will be discharged this date. Plan of Care PT Services Indicated No
== END 2025-05-27 23:59 | disposition home or self-care (01) ==
LOC: CHSPT 14:59
PROVIDERS: Visit Provider Family Medicine Sports Medicine
DX: S93.411D Sprain of calcaneofibular ligament of right ankle, subsequent encounter (principal); M65.969 Unspecified synovitis and tenosynovitis, unspecified lower leg; M25.571 Pain in right ankle and joints of right foot
CPT/HCPCS: 97110; 97112; 97140; 97150; 97161

== ENCOUNTER 2025-06-26 16:04 | Emergency (ER) | payer BC, SELFPAY ==
--- OUTSIDE RECORDS SUMMARY | 2024-12-18 11:30 | XMS_ITS ---
Author Organization [facility] [place] ([address]) Address [address] [place] [address] Care Team Providers Care Commissary Production Supervisor Name Role Phone Osei, Gely Primary Care Provider UnavailAlem Curry Unavailable [phone] Susanne NUNEZ Unavailable Unavailable Rene Browning Unavailable [phone] REASON FOR VISIT SCIT (Aeroallergen) Social History Sex Assigned At : Social History Observation Description Sex Assigned At Female Encounters Encounter Location Date Provider Diagnosis [address] [place] [address] 12/18/2024 Rene Browning Plan Of Treatment Next Appt Details Provider Name:Rene Browning , 07/02/2025 08:10:00 AM, [address], [place], [address], Provider Name:Rene Browning , 07/09/2025 07:40:00 AM, [address], [address], [place], [address], Provider Name:Rene Browning , 07/31/2025 07:30:00 AM, [address], [address], [place], [address], Provider Name:Alem sotelo, 08/20/2025 04:00:00 PM, [address] [place] [address], [address], [place], [address], Progress Notes * Ijeoma PAULADOB:1985 (39 yo F)Acc No.[id number]:12/18/2024 SCIT-Aeroallergen Patient: Ijeoma AGUILERA Provider: Hui Browning MD :1985 A ge:39 Y S ex:Female Date:12/18/2024 Address:[address] [place], [place] [id number] Pcp:Gely Osei Subjective: * Chief Complaints: * 1 . SCIT (Aeroallergen). * Medical History: Objective: * Vitals: Assessment: Plan: * Treatment: * Billing Information: * Visit Code: * Procedure Codes: * Electronic signature of Tadeo Browning MD, FAAAAI on 06/26/2025 at 06:03 PM [employer] Sign off status: Pending * Provider: Hui Browning MD Date: 0 12/18/2024 Generated for Larryi chuck/Adriel/eTransmitting on: 1 08/27/2024 06:03 PM [employer]
--- OUTSIDE RECORDS SUMMARY | 2025-04-17 11:30 | XMS_ITS ---
Author Organization [facility] [place] ([address]) Address [address] [place] [address] Care Team Providers Care Certified Hand Therapist Name Role Phone Osei, Gely Primary Care Provider UnavailAlem Curry Unavailable [phone] Susanne NUNEZ Unavailable Unavailable rBittney Mahmood Unavailable [phone] REASON FOR VISIT Asthma follow-up Social History Sex Assigned At : Social History Observation Description Sex Assigned At Female Encounters Encounter Location Date Provider Diagnosis [address] [address] 04/17/2025 Brittney Mahmood Plan Of Treatment Next Appt Details Provider Name:Rene Browning , 07/02/2025 08:10:00 AM, [address], [address], Provider Name:Rene Browning , 07/09/2025 07:40:00 AM, [address], [place], [address], Provider Name:Rene Browning , 07/31/2025 07:30:00 AM, [address], [place], [address], Provider Name:Alem sotelo 08/20/2025 04:00:00 PM, [address], [address], Progress Notes * Ijeoma PAULADOB:1985 (39 yo F)Acc No.[id number]:04/17/2025 Asthma F/U Patient: Ijeoma AGUILERA Provider: MONO Pearl :1985 A ge:39 Y S ex:Female Date:04/17/2025 Address:[address] [place] [address], [id number] Pcp:Gely Osei Subjective: * Chief Complaints: * 1 . Asthma follow-up. * Medical History: Objective: * Vitals: Assessment: Plan: * Treatment: * Billing Information: * Visit Code: * Procedure Codes: * Electronic signature of MONO James on 06/26/2025 at 06:03 PM [email or web address] Sign off status: Pending * Provider: MONO Pearl Date: 1 Generated for Arcadio woods/Adriel/eTpaulasmitting on: 08/27/2024 06:03 PM MOSHGIACH
--- OUTSIDE RECORDS SUMMARY | 2025-06-26 01:30 | XMS_ITS ---
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 Reached MM 10/2023., Recurrent cough in relation to PND. Stopped smoking now with improvement in SCIT. Has used SIMONE in the past with lower airway infections. Pneumonia noted in Summer 2019. Initial spirometry with decreasedFEV1 and little reversibility. Using VCD exercises with clear benefit ACT is 20 today., Hives follow-up: Previously only in the setting rabbits and dogs. Taking Zyrtec BID and Singulair at night, only with sporadic breakthrough Medications Medication SIG (Take, Route, Frequency, Duration) Notes Start Date End Date Status Olopatadine HCl 0.6 % 2 sprays in each nostril Nasally Twice a day; Duration: 30 days Active SIT (TRADITIONAL) variable per schedule SC per schedule; Duration: to be determined Active Fluticasone Propionate 50 MCG/ACT 1 spray in each nostril Nasally Twice a day; Duration: 30 days Active Albuterol Sulfate HFA 108 (90 Base) MCG/ACT 2 puffs as needed Inhalation every 4 hrs; Duration: 30 days Active Montelukast Sodium 10 MG 1 tablet Orally Once a day; Duration: 90 days Active PEPCID 20 mg 1 tab(s) orally 2 times a day; Duration: 30 days Active CETIRIZINE 10 mg 1 tab(s) orally twice a day; Duration: 30 days Active NASAL WASHES N/A as directed intranasally as needed; Duration: 30 Active AUVI -Q 0.3 mg as directed intramuscularly once; Duration: 30 days Active AEROCHAMBER MDI SPACER - MOUTHPIECE (ADULT) N/A As directed PO Per asthma action plan; Duration: 30 day(s) Active Cetirizine HCl 10 MG 1 tab(s) orally once a day; Duration: 30 days Not-Taking TRIAMCINOLONE ACETONIDE TOPICAL 0.1% 1 matt applied topically 3 times a day; Duration: 7 day(s) 05/11/2022 Not-Taking KENDY-D 24 HOUR ALLERGY AND CONGESTION 180 MG-240 MG 1 TAB(S) ORALLY ONCE A DAY *Please review for potential replacement for e-prescription and drug interaction check* Not-Taking Famotidine 40 MG 1 tab(s) orally 30 mins prior to SCIT; Duration: 30 days Not-Taking Triamcinolone Acetonide 0.1 % 1 matt applied topically 3 times a day; Duration: 7 day(s) 05/11/2022 Not-Taking FAMOTIDINE 40 mg 1 tab(s) orally 30 mins prior to SCIT; Duration: 30 days Not-Taking OLOPATADINE NASAL 665 MCG/INH 2 SPRAY(S) INTRANASALLY 2 TIMES A DAY; Duration: 30 DAYS *Please review for potential replacement for e-prescription and drug interaction check* Not-Taking CETIRIZINE 10 mg 1 tab(s) orally once a day; Duration: 30 days Not-Taking MONTELUKAST 10 mg 1 tab(s) orally once a day; Duration: 90 days Not-Taking OLOPATADINE NASAL 665 MCG/INH 2 SPRAY(S) INTRANASALLY 2 TIMES A DAY; Duration: 30 DAYS *Please review for potential replacement for e-prescription and drug interaction check* Not-Taking Breo Ellipta 100-25 MCG/ACT 1 puff Inhalation Once a day; Duration: 30 days 06/26/2025 Active FLUTICASONE NASAL 50 mcg/inh 2 spray(s) in each nostril BID; Duration: 30 day(s) Not-Taking EPIPEN 2-ROSHNI 0.3 mg as directed intramuscularly once; Duration: 30 day(s) 06/17/2022 Not-Taking PEPCID 20 mg 1 tab(s) orally 2 times a day; Duration: 30 days Not-Taking MONTELUKAST 10 mg 1 tab(s) orally once a day; Duration: 90 days Not-Taking CETIRIZINE 10 mg 1 tab(s) orally twice a day; Duration: 30 days Not-Taking FLUTICASONE NASAL 50 mcg/inh 2 spray(s) in each nostril BID; Duration: 30 day(s) Not-Taking Montelukast Sodium 10 MG 1 tab(s) orally once a day; Duration: 90 days Not-Taking ALBUTEROL (EQV-PROAIR HFA) 90 mcg/inh 2 puff(s) inhaled every 6 hours; Duration: 30 days Not-Taking MONTELUKAST 10 mg 1 tab(s) orally once a day; Duration: 90 days Not-Taking Cetirizine HCl 10 MG 1 tab(s) orally twice a day; Duration: 30 days Active Pepcid 20 mg 1 tab(s) orally 2 times a day; Duration: 30 days Active SIT (CLUSTER) VARIABLE PER SCHEDULE SC PER SCHEDULE; Duration: TO BE DETERMINED *Please review for potential replacement for e-prescription and drug interaction check* 05/04/2022 Active Auvi-Q 0.3 MG/0.3ML as directed intramuscularly once; Duration: 30 days Active Social History Tobacco Use: Social History Observation Description Date Details (start date - stop date) Former Smoker NA - NA Sex Assigned At : Social History Observation Description Sex Assigned At Female Tobacco Control (Standard) Question Answer Notes Tobacco use: Former smoker AUDIT-C (Standard) Question Answer Notes Did you have a drink containing alcohol in the p ast year? No Points 0 Interpretation Negative Vital Signs Blood pressure systolic 139 mm Hg 06/26/20 25 Blood pressure diastolic 85 mm Hg 025 Height 68 in 06/26/2025 Weight 201 lbs 06/26/2025 BMI 30.56 kg/m2 06/26/2025 Oximetry 100 % 06/26/2025 Encounters Encounter Location Date Provider Diagnosis [facility] [address] [facility] [address] [place] [id number] 06/26/2025 Alem Fabian Allergic rhinitis du e to pollen J30.1 ; Allergic rhinitis due to animal (cat) (dog) hair and dander J30.81 ; Other allergic rhinitis J30.89 ; Other chronic allergic conjunctivitis H10.45 ; Allergic urticaria L50.0 ; Cough, unspecified R05.9 ; Dysphagia, unspecified R13.10 and Elevated blood-pressure reading, without diagnosis of hypertension R03.0 Assessments Encounter Date Diagnosis (ICD Code) Assessment Notes Treatment Notes Treatment Clinical Notes Section Notes 06/26/2025 Allergic rhinitis due to pollen (ICD-10 - J30.1) Ijeoma clearly suffers from atopic disease based upon our skin testing. Accordingly, we have encouraged her medication regimen, discussed nasal washes and allergy-specific avoidance measures. - Ijeoma continues SCIT at . She tolerated dosing today without issue. AIE is on hand. - Continue medication regimen as above. - Ijeoma reported last visit a small, raised blister that has occurred twice on her left forearm. She states it becomes bruised after and lasts for days. This occurs one week after SCIT. Timeline is atypical. Ijeoma is to journal and take photos if symptoms recur. Symptoms have not recurred since. - Increase SCIT frequency in peak seasons PRN. - Return in 2-3 months for further evaluation and management 06/26/2025 Allergic rhinitis due to animal (cat) (dog) hair and dander (ICD-10 - J30.81) Follow allergen avoidance, meds and continue SCIT as an adjunctive treatment to current regimen 06/26/2025 Other allergic rhinitis (ICD-10 - J30.89) Follow allergen avoidance, meds and continue SCIT as an adjunctive treatment to current regimen 06/26/2025 Other chronic allergic conjunctivitis (ICD-10 - H10.45) Given ocular signs and symptoms I encouraged allergy avoidance measures and meds as above. If symptoms persist, consider adding additional medications including intraocular antihistamine/ma st cell stabilizer, PRN and continue SCIT as an adjunctive measure 06/26/2025 Allergic urticaria (ICD-10 - L50.0) Recurring episodes of urticaria, previously reported only in the setting of touching her dogs at home. She denies any other triggers or history of facial swelling. She is now reporting spontaneous hives without clear triggers; no associated symptoms. She takes Zyrtec and Pepcid PRN. - Ijeoma is unsure if symptoms have been occurring for less than or greater than 6 weeks. - Discussed trial of Zyrtec 10 mg BID, Pepcid 20 mg BID and Singulair 10 mg at night. Ijeoma does not prefer to take Pepcid. We briefly discussed alternative options, which Ijeoma is not interested in at this time. - Consider obtaining labs, which we briefly discussed today. Discuss further next visit. - Journal for triggers. - Return in 2 months for further evaluation and management 06/26/2025 Cough, unspecified (ICD-10 - R05.9) Cough in relation to AM PND and perceived aeroallergen triggers. No other SOB or wheezing. Noted 10 pack/year smoking history. He has used SIMONE in the past only in the setting of lower airway infections. Also with one episode of pneumonia. Spirometry at initial visit showed decreased FEV1%. Post BD without significant reverability though this does not preclude RAD. Clear blunting on inspiration concerning for VCD also noted on last spiromtery. - Ijeoma reports occaisonal SIMONE use when exposed to her wood-burning fireplace. Plan to start trial of low-dose ICS/LABA. Rinse mouth after use. STOP PRN Dulera. - Ijeoma has continued using vocal cord exercises PRN. - Last spirometry obtained showed normal FEV1, FVC and FEV%. - Continue SIMONE as-needed. - Return in 2-3 months for further evaluation and management 06/26/2025 Dysphagia, unspecified (ICD-10 - R13.10) Reported dysphagia with sold foods. Reports father has history of esophageal cancer and is concerned given smoking history as well. Would consider establishing with GI 06/26/2025 Elevated blood-pressure reading, without diagnosis of hypertension (ICD-10 - R03.0) BP elevated today without symptoms of urgency or emergency. Continue serial checks and follow-up with PCP 06/26/2025 Other Plan Of Treatment Medication Medication Name Sig Start Date Stop Date Notes Olopatadine HCl 0.6 % 2 sprays in each n ostril Nasally Twice a day; Duration: 30 days SIT (TRADITIONAL) variable per schedule SC per schedule; Duration: to be determined Fluticasone Propionate 50 MCG/ACT 1 spray in each nostril Nasally Twice a day; Duration: 30 days Albuterol Sulfate HFA 108 (90 Base) MCG/ACT 2 puffs as needed Inhalation every 4 hrs; Duration: 30 days Montelukast Sodium 10 MG 1 tablet Orally Once a day; Duration: 90 days PEPCID 20 mg 1 tab(s) orally 2 ti mes a day; Duration: 30 days CETIRIZINE 10 mg 1 tab(s) orally twic e a day; Duration: 30 days NASAL WASHES N/A as directed intranas ally as needed; Duration: 30 AUVI -Q 0.3 mg as directed intramus cularly once; Duration: 30 days AEROCHAMBER MDI SPACER - MOUTHPIECE (ADULT) N/A As directed PO Per asthma action plan; Duration: 30 day(s) Breo Ellipta 100-25 MCG/ACT 1 puff Inhal ation Once a day; Duration: 30 days 06/26/2025 Treatment Notes Assessment Notes Allergic rhinitis due to pollen Ijeoma clearly suffers from atopic disease based upon our skin testing. Accordingly, we have encouraged her medication regimen, discussed nasal washes and allergy-specific avoidance measures. - Ijeoma continues SCIT at . She tolerated dosing today without issue. AIE is on hand. - Continue medication regimen as above. - Ijeoma reported last visit a small, raised blister that has occurred twice on her left forearm. She states it becomes bruised after and lasts for days. This occurs one week after SCIT. Timeline is atypical. Ijeoma is to journal and take photos if symptoms recur. Symptoms have not recurred since. - Increase SCIT frequency in peak seasons PRN. - Return in 2-3 months for further evaluation and management Allergic rhinitis due to ani mal (cat) (dog) hair and dander Follow allergen avoidance, meds and continue SCIT as an adjunctive treatment to current regimen Other allergic rhinitis Follow allergen avoidance, meds and continue SCIT as an adjunctive treatment to current regimen Other chronic allergic conjunctivitis Gi taqueria ocular signs and symptoms I encouraged allergy avoidance measures and meds as above. If symptoms persist, consider adding additional medications including intraocular antihistamine/mast cell stabilizer, PRN and continue SCIT as an adjunctive measure Allergic urticaria Recurring episodes of urticaria, previously reported only in the setting of touching her dogs at home. She denies any other triggers or history of facial swelling. She is now reporting spontaneous hives without clear triggers; no associated symptoms. She takes Zyrtec and Pepcid PRN. - Ijeoma is unsure if symptoms have been occurring for less than or greater than 6 weeks. - Discussed trial of Zyrtec 10 mg BID, Pepcid 20 mg BID and Singulair 10 mg at night. Ijeoma does not prefer to take Pepcid. We briefly discussed alternative options, which Ijeoma is not interested in at this time. - Consider obtaining labs, which we briefly discussed today. Discuss further next visit. - Journal for triggers. - Return in 2 months for further evaluation and management Cough, unspecified Cough in relation to AM PND and perceived aeroallergen triggers. No other SOB or wheezing. Noted 10 pack/year smoking history. He has used SIMONE in the past only in the setting of lower airway infections. Also with one episode of pneumonia. Spirometry at initial visit showed decreased FEV1%. Post BD without significant reverability though this does not preclude RAD. Clear blunting on inspiration concerning for VCD also noted on last spiromtery. - Ijeoma reports occaisonal SIMONE use when exposed to her wood-burning fireplace. Plan to start trial of low-dose ICS/LABA. Rinse mouth after use. STOP PRN Dulera. - Ijeoma has continued using vocal cord exercises PRN. - Last spirometry obtained showed normal FEV1, FVC and FEV%. - Continue SIMONE as-needed. - Return in 2-3 months for further evaluation and management Dysphagia, unspecified Reported dysphagi a with sold foods. Reports father has history of esophageal cancer and is concerned given smoking history as well. Would consider establishing with GI Elevated blood-pressure read ing, without diagnosis of hypertension BP elevated today without symptoms of urgency or emergency. Continue serial checks and follow-up with PCP Pending Test Test Name Order Date Spirometry 06/26/2025 Next Appt Details Follow Up: as scheduled, 2-3 Months, Reason: SCIT, Evaluation and Management Provider Name:Rene Browning , 07/02/2025 08:10:00 AM, [address], [address], Provider Name:Rene Browning , 07/09/2025 07:40:00 AM, [address], [address], [place], [address], Provider Name:Rene Browning , 07/31/2025 07:30:00 AM, [address] [facility] [address], [place], [address], Provider Name:Alem sotelo, 08/20/2025 04:00:00 PM, [facility] [address], [place], [address], Procedure Notes * Category Sub-Category Detail Notes SCIT Traditional Aeroallergen Schedul e Administration:: Full dosing administered per SOP and AAIC's titration schedule and/or specific instructions as outlined on the patient's shot record; see attached for specifics re: content, concentration, volume and location of injection(s). 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 Reached MM 10/2023.Recurrent cough in relation to PND. Stopped smoking now with improvement in SCIT. Has used SIMONE in the past with lower airway infections. Pneumonia noted in Summer 2019. Initial spirometry with decreased FEV1 and little reversibility. Using VCD exercises with clear benefit ACT is 20 today.Hives follow-up: Previously only in the setting rabbits and dogs. Taking Zyrtec BID and Singulair at night, only with sporadic breakthrough * HPI: * Introduction: HPI: Ton granadoscarleen Paula, a 39-year-old female with history of ARC and hives in the setting of dogs returns in consultation with GILDARDO Osei for interval evaluation and management. Ijeoma was previously followed by DESTINY Nunez. S he is alone for today's visit. Ijeoma returns today reporting increased episodes of shortness of breath, thought to be caused by her wood burning fireplace. A eroallergen skin testing was completed at prior visit, and was positive to multiple seasonal and perennial allergens. She has since started SCIT, reached MM 10/2023. She has had multiple systemic reactions after SCIT. Last visit Ijeoma reported a small skin lesion on her left forearm that has occurred twice, one week after SCIT dosing. She desthis lesion as a blister that bruised after. She denies issues since she was last seen. She has also reported recurrent cough, thought to be related to post-nasal drip. S he has been prescribed albuterol inhalers in the past, typically surrounding illness. She has since stopped smoking with improvement in cough. S he reports pneumonia in 2019, unsure if chest X-ray was performed. She returns today reporting occasional episodes of shortness of breath, which she feels are due to her wood burning fireplace. She has been using her albuterol inhaler a handful of times per week. ACT is 20. No antibiotics or steroids since she was last seen. She also reports recurrent hives in relation to playing with her dogs. This fist happened at age 10, she first stated noticing hives in relation to a rabbit that she got rid of. This previously only occurred in the setting of dogs, however she returns today reporting a few episodes of spontaneous hives without clear trugger. No history of facial swelling. She noticed increased occurance this past Summer. She reports today taking Zyrtec BID and Singulair at night, she does not prefer to take Pepcid. Today, she reports no fevers, chills, night sweats or other constitutional symptoms . The patient is here for scheduled specific allergen immunotherapy. Please see the attached specialty form regarding the specifics of the administration of these vaccines. As per our protocol, they must undergo a screening health questionnaire (medication changes, reaction(s) to last immunotherapy dose(s), current health status, ACT (if appropriate), self-injectable epinephrine on patient(?) and peak flow (if appropriate)). Also, the patient must wait in our office for 30 minutes after receiving immunotherapy. Furthermore, every patient must have an epinephrine pen (self-injectable) with them at the time of administration--and carry if for the following 1.5 hours after they leave our office. The patient must also have taken their antihistamine the day of the injection, preferably 2 hours prior. The consent form for SCIT (subcutaneous immunotherapy) is on file. * ROS: A LLERGY: Positive p er the HPI and history, otherwise unremarkable.?runny nose Y es. s cratchy throat Y es. i tchy eyes Y es. e ar fullness?No. s inus congestion Y es. S PECIAL SENSES: Positve for n one. c ataracts N o. g laucoma?No. l oss of hearing N o. i tching in ears N o. r inging in ears N o.?loss of balance N o. l oss of smell N o. d ry eyes Y es. e xcessive tearing N o. i tching eyes Y es. l oss of taste N o. c onjunctivitis N o. e ar infections N o. C ONSTITUTIONAL: weight gain Y es. l oss of appetite N o. f ever?No. w eakness N o. w eight loss N o. f atigue Y es. n ight sweats?No. P ositive for n one. E NT: cold N o. c ough Y es. e pistaxis N o. h earing loss N o. c hange in voice Y es. s ore throat Y es. r inging in ears N o. s inus pain Y es. P ositive p er the HPI and history, otherwise unremarkable. R ESPIRATORY: shortness of breath Y es. c hest pain N o. c hest congestion Y es. c ough Y es. P ositive p er the HPI and history, otherwise unremakable. O PHTHALMOLOGY: diminished vision N o. e ye irritation N o. d rainage from eyes Y es. b lurring of vision N o. s easonal eye sx N o. P ositive for p er the HPI and history, otherwise unremarkable. i tching Y es. s ensitivity to light Y es. d ischarge N o. w atering Y es. s welling of the eyelids?No. r edness Y es. E NDOCRINOLOGY: fatigue N o. p olydipsia N o. p olyuria N o. w eight loss N o. c old intolerance N o. h eat intolerance N o. d iabetes N o. P ositive for n one. C ARDIOLOGY: chest pain N o. p alpitations N o. l eg edema?No. s hortness of breath Y es. P ositive for n one. G ASTROENTEROLOGY: dysphagia N o. a bdominal pain N o. n ausea?No. v omiting N o. c onstipation N o. d iarrhea N o. b lood in stool?No. i ndigestion N o. h emorrhoids N o. P ositive for n one. ? U ROLOGY: difficulty urinating N o. b lood in urine N o. f requent urination N o. u rinary incontinence N o. r ecurrent UTI N o. P ositive for n one. D ERMATOLOGY: rash N o. m ole N o. l umps N o. d ry or sensitive skin Y es. h vi (urticaria) N o. a cne N o. s kin cancer N o. P ositive for p er the HPI and history, otherwise unremakable. N EUROLOGY: headache Y es. t ingling numbness N o. s eizures N o. i nsomnia N o. m surendra loss N o. d izziness N o. g ait abnormality N o. P ositive for n one. H EMATOLOGY/LYMPH: Positive for n one. M USCULOSKELETAL: joint swelling N o. j oint pain N o. l eg cramps N o. j oint stiffness N o. s ciatica N o. o steoporosis N o. f racture N o. c arpal tunnel N o. g out N o. P ositive for n one. P SYCHOLOGY: high stress level N o. d epression N o. s leep disturbances Y es. s uicidal ideation N o. e ating disorder N o. m ental or physical abuse N o. a nxiety N o. P ositive for n one. F EMALE REPRODUCTIVE: heavy periods N o. h ot flashes N o. a bnormal vaginal discharge N o. i nfertility N o. f requent yeat infections N o. p elvic pain N o. b reast pain N o. n ipple discharge N o. A re you ??No. A re you planning on a future pregancy? N o. A ll other review of systems per the HPI and history, otherwise unremarkable. * Medical History: * Surgical History: t ubal ligation Cyst Removal * Hospitalization/Major Diagno stic Procedure: S EE SURGICAL HX * Family History: M other: Yes. C lisa: Yes. 1 daughter(s) - healthy. . * Social History: M arital Status What is your marital status? m arried A lcohol Screening Do you ever drink alcoholic beverages? Y es Number of drinks per occasion: 6 Frequency? M onthly S moking Are you a : f ormer smoker When did you stop smoking? 0 03/15/2023 Additional Findings: Tobacco User L ight cigarette smoker ((1-9 cigs/day) R ecreational drug use Have you ever used recreational drugs? Y es What kind of drugs? m arijuana D etails on consumption of certain products? Do you regularly consume products with aspartame; Equal or NutraSweet? N o Do you regularly consume products with artificial coloring??Yes Have you ever noticed worsening of your rash with these food items? N o E xercise What kind(s) of exercise do you perform regularly? w alking How often do you perform this exercise? d aily,weekly A re any of the following personal care products containing fragrance, dye or preservatives used regularly? Shampoo: Y es Conditioner: Y es Soap: Y es Laundry Detergent: Y es Fabric Softener: Y es Deodorant: Y es Perfume, cologne, after shave: Y es Air freshners or other scented products: Y es Hair coloring dyes or rinses: Y es O ccupation Are you currenly employed? Y es Employment status? 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 number of years?14 Do you believe that your current or previous occupation has any bearing on your illness? N o Do you have any pending or planned legal action against your current or former employer which pertains to your medical illness? N o Do you anticipate that your evaluation will be used in any legal action against your current employer or former employer? N o Have you had any job with high exposure to fumes, chemicals, dust or other noxious substances? N o Are you currently a student? N o E nvironmental History Living environment: p rivate home Where is the home located? r [place] Age of home: 4 0 How long have you lived there? 2 -4 years How many people live in the home? 3 H ome description Basement: Y es Any water damage in basement? N o Smokers in the home? N o Smokers outside the home? Y es Air Conditioning? Y es Central Air? Y es Forced air heating? Y es Gas or electric? o ther Fireplace? Y es Used how often? w inter months only Wood burning stove? Y es Used how often? o ther Do you vacuum the home? Y es Air purification systems? N o Pillow and mattress dust-proof encasings? N o Do you use a humidifier? Y es Whole house or room? r oom humidifier Is it used year-round, seasonal, or as needed? y ear-round Is the humidifier cleaned regularly? Y es Do you own any pets? Y es What kind(s)? (click all that apply) d og Where do your pets sleep? b edroom Fabric softeners used? Y es Plants in the home? N o Is there carpeting in your bedroom? Y es Age of carpet? 3 0 Do you have [id number] carpeting? N o What is the age of your mattress (years)? 0 What is the age of your pillow (years)? 5 Do you sleep with quilts or blankets or a duvet? Y es How many dogs? 5 T obacco Control (Standard) Tobacco use: F ormer smoker A IRIS-C (Standard) Did you have a drink containing alcohol in the past year? N o Points 0 Interpretation N egative * Medications: T akingPepcid 20 mg tablet 1 tab(s) orally 2 times a day Olopatadine HCl 0.6 % Solution 2 sprays in each nostril Nasally Twice a day Cetirizine HCl 10 MG Tablet 1 tab(s) orally twice a day Auvi-Q 0.3 MG/0.3ML Solution Auto-injector as directed intramuscularly once SIT (CLUSTER) VARIABLE SEE RECORD PER SCHEDULE SC PER SCHEDULE , Notes to Pharmacist: *Please review for potential replacement for e-prescription and drug interaction check*Albuterol Sulfate HFA 108 (90 Base) MCG/ACT Aerosol Solution 2 puffs as needed Inhalation every 4 hrs Fluticasone Propionate 50 MCG/ACT Suspension 1 spray in each nostril Nasally Twice a day Montelukast Sodium 10 MG Tablet 1 tablet Orally Once a day Taking Pepcid 20 mg tablet 1 tab(s) orally 2 times a day Taking Olopatadine HCl 0.6 % Solution 2 sprays in each nostril Nasally Twice a day Taking Cetirizine HCl 10 MG Tablet 1 tab(s) orally twice a day Taking Auvi-Q 0.3 MG/0.3ML Solution Auto-injector as directed intramuscularly once Taking SIT (CLUSTER) VARIABLE SEE RECORD PER SCHEDULE SC PER SCHEDULE , Notes to Pharmacist: *Please review for potential replacement for e-prescription and drug interaction check*Taking Albuterol Sulfate HFA 108 (90 Base) MCG/ACT Aerosol Solution 2 puffs as needed Inhalation every 4 hrs Taking Fluticasone Propionate 50 MCG/ACT Suspension 1 spray in each nostril Nasally Twice a day Taking Montelukast Sodium 10 MG Tablet 1 tablet Orally Once a day Not-Taking/PRNALBUTEROL (EQV-PROAIR HFA) 90 mcg/inh aerosol 2 puff(s) inhaled every 6 hours MONTELUKAST 10 mg tablet 1 tab(s) orally once a day FLUTICASONE NASAL 50 mcg/inh spray 2 spray(s) in each nostril BID Montelukast Sodium 10 MG Tablet 1 tab(s) orally once a day CETIRIZINE 10 mg tablet 1 tab(s) orally twice a day PEPCID 20 mg tablet 1 tab(s) orally 2 times a day MONTELUKAST 10 mg tablet 1 tab(s) orally once a day FLUTICASONE NASAL 50 mcg/inh spray 2 spray(s) in each nostril BID EPIPEN 2- ROSHNI 0.3 mg kit as directed intramuscularly once MONTELUKAST 10 mg tablet 1 tab(s) orally once a day OLOPATADINE NASAL 665 MCG/INH SPRAY 2 SPRAY(S) INTRANASALLY 2 TIMES A DAY , Notes to Pharmacist: *Please review for potential replacement for e- prescription and drug interaction check*OLOPATADINE NASAL 665 MCG/INH SPRAY 2 SPRAY(S) INTRANASALLY 2 TIMES A DAY , Notes to Pharmacist: *Please review for potential replacement for e-prescription and drug interaction check*CETIRIZINE 10 mg tablet 1 tab(s) orally once a day FAMOTIDINE 40 mg tablet 1 tab(s) orally 30 mins prior to SCIT TRIAMCINOLONE ACETONIDE TOPICAL 0.1% ointment 1 matt applied topically 3 times a day Cetirizine HCl 10 MG Tablet 1 tab(s) orally once a day Famotidine 40 MG Tablet 1 tab(s) orally 30 mins prior to SCIT Triamcinolone Acetonide 0.1 % Ointment 1 matt applied topically 3 times a day KENDY-D 24 HOUR ALLERGY AND CONGESTION 180 MG- 240 MG TABLET, EXTENDED RELEASE 1 TAB(S) ORALLY ONCE A DAY , Notes to Pharmacist: *Please review for potential replacement for e-prescription and drug interaction check*Medication List reviewed and reconciled with the patientNot-Taking/PRN ALBUTEROL (EQV-PROAIR HFA) 90 mcg/inh aerosol 2 puff(s) inhaled every 6 hours Not-Taking/PRN MONTELUKAST 10 mg tablet 1 tab(s) orally once a day Not- Taking/PRN FLUTICASONE NASAL 50 mcg/inh spray 2 spray(s) in each nostril BID Not-Taking/PRN Montelukast Sodium 10 MG Tablet 1 tab(s) orally once a day Not-Taking/PRN CETIRIZINE 10 mg tablet 1 tab(s) orally twice a day Not-Taking/PRN PEPCID 20 mg tablet 1 tab(s) orally 2 times a day Not-Taking/PRN MONTELUKAST 10 mg tablet 1 tab(s) orally once a day Not-Taking/PRN FLUTICASONE NASAL 50 mcg/inh spray 2 spray(s) in each nostril BID Not-Taking/PRN EPIPEN 2-ROSHNI 0.3 mg kit as directed intramuscularly once Not-Taking/PRN MONTELUKAST 10 mg tablet 1 tab(s) orally once a day Not- Taking/PRN OLOPATADINE NASAL 665 MCG/INH SPRAY 2 SPRAY(S) INTRANASALLY 2 TIMES A DAY , Notes to Pharmacist: *Please review for potential replacement for e-prescription and drug interaction check*Not-Taking/PRN OLOPATADINE NASAL 665 MCG/INH SPRAY 2 SPRAY(S) INTRANASALLY 2 TIMES A DAY , Notes to Pharmacist: *Please review for potential replacement for e-prescription and drug interaction check*Not-Taking/PRN CETIRIZINE 10 mg tablet 1 tab(s) orally once a day Not-Taking/PRN FAMOTIDINE 40 mg tablet 1 tab(s) orally 30 mins prior to SCIT Not-Taking/PRN TRIAMCINOLONE ACETONIDE TOPICAL 0.1% ointment 1 matt applied topically 3 times a day Not-Taking/PRN Cetirizine HCl 10 MG Tablet 1 tab(s) orally once a day Not-Taking/PRN Famotidine 40 MG Tablet 1 tab(s) orally 30 mins prior to SCIT Not-Taking/PRN Triamcinolone Acetonide 0.1 % Ointment 1 matt applied topically 3 times a day Not-Taking/PRN KENDY-D 24 HOUR ALLERGY AND CONGESTION 180 MG-240 MG TABLET, EXTENDED RELEASE 1 TAB(S) ORALLY ONCE A DAY , Notes to Pharmacist: *Please review for potential replacement for e-prescription and drug interaction check*Medication List reviewed and reconciled with the patient * Allergies: N .K.D.A.no[Allergies Verified] Objective: * Vitals: B P:139/85mm Hg, HR:85/min, Pulse Oximetry:100%, Ht: 68 in, Wt: 201 lbs, BMI:30.56Index. * Examination: G eneral examination: General appearance: p leasant, well-developed, well-nourished , female, in no apparent distress. HEENT: c onjunctiva are normal bilaterally, TMs without evidence of acute infection, posterior oropharynx is clear without exudates, no tongue swelling. Oral cavity: n ormal, no lesions. Breasts : n ot performed. Heart: R RR, S1-S2, no murmurs, no rubs, no gallops. Lungs: c lear to auscultation in all lung osei, no wheezes or crackles. Neurologic exam: u nremarkable. Skin: n ormal, no rash, dermatographism, urticaria, angioedema. Back: n ormal. Extremities: n ormal ROM, no clubbing, no cyanosis, no edema. Genitalia: n ot performed. Assessment: * Assessment: 1. A llergic rhinitis due to pollen - J30.1 (Primary) 2 . A llergic rhinitis due to animal (cat) (dog) hair and dander - J30.81 3 . O ther allergic rhinitis - J30.89 4 . O ther chronic allergic conjunctivitis - H10.45 5 . A llergic urticaria - L50.0 6 . C ough, unspecified - R05.9 ?7. D ysphagia, unspecified - R13.10 8 . E levated blood-pressure reading, without diagnosis of hypertension - R03.0 Plan: * Treatment: 2. A llergic rhinitis due to animal (cat) (dog) hair and dander Notes: Follow allergen avoidance, meds and continue SCIT as an adjunctive treatment to current regimen 3. O ther allergic rhinitis Notes: Follow allergen avoidance, meds and continue SCIT as an adjunctive treatment to current regimen 4. O ther chronic allergic conjunctivitis Notes: Given ocular signs and symptoms I encouraged allergy avoidance measures and meds as above. If symptoms persist, consider adding additional medications including intraocular antihistamine/mast cell stabilizer, PRN and continue SCIT as an adjunctive measure 5. A llergic urticaria Continue CETIRIZINE tablet, 10 mg, 1 tab(s), orally, twice a day, 30 days, 60 Tablet, Refills 3;?Continue PEPCID tablet, 20 mg, 1 tab(s), orally, 2 times a day, 30 days, 60, Refills 0; R efill Montelukast Sodium Tablet, 10 MG, 1 tablet, Orally, Once a day, 90 days, 90 Tablet, Refills 0.? Notes: Recurring episodes of urticaria, previously reported only in the setting of touching her dogs at home. She denies any other triggers or history of facial swelling. She is now reporting spontaneous hives without clear triggers; no associated symptoms. She takes Zyrtec and Pepcid PRN. - Ijeoma is unsure if symptoms have been occurring for less than or greater than 6 weeks. - Discussed trial of Zyrtec 10 mg BID, Pepcid 20 mg BID and Singulair 10 mg at night. Ijeoma does not prefer to take Pepcid. We briefly discussed alternative options, which Ijeoma is not interested in at this time. - Consider obtaining labs, which we briefly discussed today. Discuss further next visit. - Journal for triggers. - Return in 2 months for further evaluation and management 6. C ough, unspecified Continue AEROCHAMBER MDI SPACER - MOUTHPIECE (ADULT) Spacer for MDI use, N/A, As directed, PO, Per asthma action plan, 30 day(s), 1, Refills 11; C ontinue Albuterol Sulfate HFA Aerosol Solution, 108 (90 Base) MCG/ACT, 2 puffs as needed, Inhalation, every 4 hrs, 30 days, Refills 1; S tart Breo Ellipta Aerosol Powder Breath Activated, 100-25 MCG/ACT, 1 puff, Inhalation, Once a day, 30 days, 1, Refills 3. I maging: Spirometry Notes: Cough in relation to AM PND and perceived aeroallergen triggers. No other SOB or wheezing. Noted 10 pack/year smoking history. He has used SIMONE in the past only in the setting of lower airway infections. Also with one episode of pneumonia. Spirometry at initial visit showed decreased FEV1%. Post BD without significant reverability though this does not preclude RAD. Clear blunting on inspiration concerning for VCD also noted on last spiromtery. - Ijeoma reports occaisonal SIMONE use when exposed to her wood-burning fireplace. Plan to start trial of low-dose ICS/LABA. Rinse mouth after use. STOP PRN Dulera. - Ijeoma has continued using vocal cord exercises PRN. - Last spirometry obtained showed normal FEV1, FVC and FEV%. - Continue SIMONE as-needed. - Return in 2-3 months for further evaluation and management 7. D ysphagia, unspecified Notes: Reported dysphagia with sold foods. Reports father has history of esophageal cancer and is concerned given smoking history as well. Would consider establishing with GI 8. E levated blood-pressure reading, without diagnosis of hypertension Notes: BP elevated today without symptoms of urgency or emergency. Continue serial checks and follow-up with PCP * Procedures: S CIT: Traditional Aeroallergen Schedule A dministration: F ull dosing administered per SOP and AAIC's titration schedule and/or specific instructions as outlined on the patient's shot record; see attached for specifics re: content, concentration, volume and location of injection(s). * Procedure Codes: 9 6160 PT-FOCUSED HLTH RISK [id number] IMMUNOTHERAPY [id number] DOC MEDS VERIFIED W/PT OR RE * Preventive Medicine: Counseling: D iet a s tolerated, Journal dietary and environmental contacts. E xercise C onsider SIMONE use PRN, prior to exercise as per the asthma action plan. M edication instruction: W atch for side effects of prescribed medications, Nasal steroid/antihistamine instruction: avoid septum, Nasal steroid/antihistamine instruction: avoid septum. E ducation: G ENERAL EDUCATION: Our staff spent an additional 30 minutes in direct contact with the patient educating them on their current diagnoses and proper treatment and prevention of symptoms and the proper use of medications,, ASTHMA EDUCATION:, Our staff discussed pulmonary function testing and results with the patient/family, Our staff formulated an asthma action plan with the patient/family, Our staff trained the patient on the appropriate use of MDI/DPI/Respimat/spacer/nebulizer treatments for future use. E ducation 2: A RC EDUCATION: Our staff discussed the appropriate allergen avoidance measures and medication utilization including upper airway hygiene with daily nasal washes given the patient's clinical status and diagnoses. SCIT EDUCATION: Discussed allergy immunotherapy including the relative risks, benefits and alternatives to this treatment as an adjunctive measure to current therapy, Allergy Immunotherapy: Risks: bleeding, infection, allergic reaction, anaphylaxis = severe allergic reaction that can cause ; Benefits: reduced need for medications, improved symptoms, disease modification. Alternatives: watch/wait, change medication regimen, improve allergy avoidance measures, Our staff discussed the warning signs of anaphylaxis and the indications to use self-injectable epinephrine and seek urgent or emergent care, VCD EDUCATION:, Resistive breathing exercises for treatment of suspected vocal cord dysfunction reviewed with the patient, VCD handout provided. P atient education material sent to portal? Y es C are goal follow up plan BMI management provided Y es Above Normal BMI Follow-up D ietary management education, guidance, and counseling B P Management: BP Reassessment Plan: F ollow-up 1 month LIFESTYLE RECOMMENDATION: H ypertension education REFERRAL TO ALTERNATIVE / PRIMARY CARE PROVIDER: R eferral to general practitioner * Follow Up: a s scheduled, 2-3 Months (Reason: SCIT, Evaluation and Management) * Billing Information: * Visit Code: 18458 Office Visit, Est Pt., Level 4. Modifiers: 25 * Procedure Codes: 50004 PT-FOCUSED HLTH RISK ASSMT. 10919 IMMUNOTHERAPY INJECTIONS. G8427 DOC MEDS VERIFIED W/PT OR RE. * [employer] EXPERIMENTAL MECHANIC Sign off status: Completed true * Provider: Susanne Fabian DNP [employer] ATTENDANT-C Date: 08/27/2024 Generated for Larryi ng/Faxing/eTransmitting on: 08/27/2024 06:03 PM [employer]PERIMENT[employer] MECHANIC History and Physical Notes * HPI (History of Present Illness) Category Sub-Category Detail Notes Category Not es *Introduction HPI: Ijeoma Paula, a 39-year-old female with history of ARC and hives in the setting of dogs returns in consultation with GILDARDO Osei for interval evaluation and management. Ijeoma was previously followed by DESTINY Nunez. She is alone for today's visit. Ijeoma returns today reporting increased episodes of shortness of breath, thought to be caused by her wood burning fireplace. Aeroallergen skin testing was completed at prior visit, and was positive to multiple seasonal and perennial allergens. She has since started SCIT, reached MM 10/2023. She has had multiple systemic reactions after SCIT. Last visit Ijeoma reported a small skin lesion on her left forearm that has occurred twice, one week after SCIT dosing. She desthis lesion as a blister that bruised after. She denies issues since she was last seen. She has also reported recurrent cough, thought to be related to post-nasal drip. She has been prescribed albuterol inhalers in the past, typically surrounding illness. She has since stopped smoking with improvement in cough. She reports pneumonia in 2019, unsure if chest X-ray was performed. She returns today reporting occasional episodes of shortness of breath, which she feels are due to her wood burning fireplace. She has been using her albuterol inhaler a handful of times per week. ACT is 20. No antibiotics or steroids since she was last seen. She also reports recurrent hives in relation to playing with her dogs. This fist happened at age 10, she first stated noticing hives in relation to a rabbit that she got rid of. This previously only occurred in the setting of dogs, however she returns today reporting a few episodes of spontaneous hives without clear trugger. No history of facial swelling. She noticed increased occurance this past Summer. She reports today taking Zyrtec BID and Singulair at night, she does not prefer to take Pepcid. Today, she reports no fevers, chills, night sweats or other constitutional symptoms The patient is here for scheduled specific allergen immunotherapy. Please see the attached specialty form regarding the specifics of the administration of these vaccines. As per our protocol, they must undergo a screening health questionnaire (medication changes, reaction(s) to last immunotherapy dose(s), current health status, ACT (if appropriate), self-injectable epinephrine on patient(?) and peak flow (if appropriate)). Also, the patient must wait in our office for 30 minutes after receiving immunotherapy. Furthermore, every patient must have an epinephrine pen (self-injectable) with them at the time of administration--and carry if for the following 1.5 hours after they leave our office. The patient must also have taken their antihistamine the day of the injection, preferably 2 hours prior. The consent form for SCIT (subcutaneous immunotherapy) is on file. Examination Category Sub-Category Detail Notes Category Not es General examination HEENT: conjunctiva are normal bilaterally, TMs without evidence of acute infection, posterior oropharynx is clear without exudates, no tongue swelling Heart: RRR, S1-S2, no murmu rs, no rubs, no gallops Lungs: clear to auscultatio n in all lung osei, no wheezes or crackles Extremities: normal ROM, no clubb ing, no cyanosis, no edema General appearance: pleasant, well-devel oped, well-nourished , female, in no apparent distress Skin: normal, no rash, christina matographism, urticaria, angioedema Neurologic exam: unremarkable Oral cavity: normal, no lesions Breasts : not performed Back: normal Genitalia: not performed
[2025-06-26 17:09] VITALS: BP 150/90; PULSE 83; RESP 16; TEMP 36.8; O2SAT 99
--- NOTE | 2025-06-26 17:30 | ED_ITS ---
HPI - General Adult General Chief complaint: Unspecified Stated complaint: facial numbness after sneezing Time Seen by Provider: 06/26/25 17:01 History of Present Illness HPI narrative: Patient has a history of cysts, noticed 1 on her left face and was going to follow-up with the furniture shampooer tomorrow when she blew her nose today and the cyst burst, with some drainage, and she now has some numbness from below her eye to her upper lip on the left. No facial droop. Related Data Home Medications ?Medication ?Instructions ?Recorded ?Confirmed ?Last Taken ?Type cetirizine 10 mg tablet (Zyrtec) 10 mg PO DAILY PRN It toby 01/28/22 01/22/25 Unknown History diphenhydramine HCl 25 mg capsule 25 mg PO TID PRN Itc darion 06/10/22 01/22/25 Unknown History (Benadryl) loratadine 10 mg tablet (Claritin) 10 mg PO DAILY /01/22/25 Unknown History Allergies Allergy/AdvReac Type Severity Reaction Status Date / Time rabbit dander Allergy Severe Throat Verified 01/22/25 12:41 closes shut Review of Systems Review of Systems: All systems reviewed & are unremarkable except as noted in HPI and below PMFSH Past Medical History Medical History (Updated 06/26/25 @ 17:27 by Earlene Melendez MD) Right ankle sprain Right ankle swelling Carpal tunnel syndrome of right wrist Allergic drug rash Contusion of foot including toes Surgical History Surgical History H/O removal of cyst Family History Family History Other Cerebrovascular accident Depression Diabetes mellitus Social History Social History Smoking packs per day: 0.5 Smoking cigarettes per day: 10.0 Years smoked: 15 Smoking pack-years: 7.50 Smoking status: Current every day smoker Tobacco type: cigarettes Alcohol intake: current Substance use: current Substance use type: marijuana Occupation/Education: occupation Exam Narrative: EXAMINATION OF ORGAN SYSTEMS/BODY AREAS: Constitutional: Vital signs per nursing GENERAL:No acute distress, non-toxic appearing. HEAD: Normal with no signs of head trauma. EYES: painless normal EOMI, conjunctiva normal ENT: Hearing grossly intact; popped pimple L medial cheek in area of infraorbital nerve LUNGS: Nonlabored breathing. HEART: Regular rate and rhythm ABD: Soft, nontender to palpation EXT: Normal range of motion SKIN: Popped pimple L medial cheek NEURO: Alert. No gross focal sensory or strength deficits. PSYCH: Normal affect Course Vital Signs Vital signs: Vital Signs Temperature 98.2 F 06/26/25 17:09 Pulse Rate 83 06/26/25 17:09 Respiratory Rate 16 06/26/25 17:09 Blood Pressure 150/90 H 06/26/25 17:09 Pulse Oximetry 99 06/26/25 17:09 Temperature 98.2 F 06/26/25 17:09 Pulse Rate 83 06/26/25 17:09 Respiratory Rate 16 06/26/25 17:09 Blood Pressure 150/90 H 06/26/25 17:09 Pulse Oximetry 99 06/26/25 17:09 [facility] MDM Narrative Medical decision making narrative: 39-year-old popped it cyst on her cheek and now has some numbness to her left cheek, based on her exam, it does appear to be in the infraorbital nerve distribution which is reasonable since it appears to be right above where the infraorbital nerve would be. No numbness or weakness of her face and no facial droop, she has full range of motion of her eyes, there is no obvious large swelling, she has no symptoms elsewhere, so I will start her on antibiotics and she does see a furniture shampooer tomorrow so I feel this is good close follow-up. I did let her know she can return to the ER if her symptoms worsen. Differential Diagnosis Differential Diagnosis: pimple, infraorbital nerve compression, very unlikely CVA, orbital cellulitis given symptoms/distribution Discharge Plan Discharge Clinical Impression: Contusion of infraorbital nerve Patient Disposition: Home Condition: Stable Instructions: Antibiotic Form Additional Instructions: You have some numbness to the left side of your face likely from pressure to the infraorbital nerve. Take the antibiotics as prescribed and follow-up with the furniture shampooer tomorrow as planned, if you start having more pain with movement of your eye balls or anything else concerning, such as spreading of the numbness, please come back to the emergency room. Patient Language: Malay Prescriptions: New doxycycline hyclate 100 mg capsule 100 mg PO Q12H 7 Days Qty: 14 0RF No Action diphenhydramine HCl [Benadryl] 25 mg Capsule 25 mg PO TID PRN (Reason: Itching) loratadine [Claritin] 10 mg Tablet 10 mg PO DAILY methylprednisolone [Medrol (Frantz)] 4 mg tablets,dose pack See Rx Instructions .ROUTE .COMPLEX Qty: 21 0RF Rx Instructions: orally per package directions cetirizine [Zyrtec] 10 mg tablet 10 mg PO DAILY PRN (Reason: Itching) Follow-up/Referrals: UNKNOWN,DOCTOR [Non-Staff]
--- NOTE | 2025-06-26 17:37 | PC.NURSE ---
NOTED THAT THE PATIENT WAS HEADED STRAIGHT TO THE PHARMACY TO DISASTER RECOVERY ANALYST HER ANTIBIOTICS AND WILL HAVE STRICT FOLLOW UP WITHOUT FAIL WITH CHIROPRACTIC TEACHER IN THE AM.
--- OUTSIDE RECORDS SUMMARY | 2025-06-26 18:03 | XMS_ITS | Clinical Summary ---
Author Organization [facility] [address] Address [address] [place] [address] Phone Care Team Providers Care Photogrammetric Technician Name Role Phone Farnaz Gely Ugarte NP Primary Care Provider [phone] Allergies No known active allergies Medications fexofenadine [...] Active Additional Information Patient not taking.Reported on 02/19/2025 Active Problems No known active problems Immunizations [...] Passive Smoke Exposure: Never Smokeless Tobacco: Never Tobacco Cessation:Ready to Q uit: Not Asked; Counseling Given: Not Answered Comments:E-Cig & cigars Alcohol Use Standard Drinks/Week Comments Yes 0 (1 standard drink = 0.6 oz pur e alcohol) weekends Comments No Sex and Gender Information Value Date Recorded Sex Assigned at Not on file Legal Sex Female 7:24 PM AURICULOTHERAPIST Gender Identity Not on file Sexual Orientation [...] Sign Reading Time Taken Comments Blood Pressure 132/82 02/19/2025 11:42 AM CDT Pulse 72 02/19/2025 11:42 AM CDT Temperature 36.2 C (97.1 F) 07/22/2020 1:19 PM AURICULOTHERAPIST Respiratory Rate 16 06/08/2017 2:54 PM AURICULOTHERAPIST Oxygen Saturation 98% 06/08/2017 2:54 PM AURICULOTHERAPIST Inhaled Oxygen Concentration - - Weight 90.4 kg (199 lb 3.2 oz) 02/02/2025 2:10 P M CDT Height 172.7 cm (5' 8) 02/19/2025 11:42 AM CDT Body Mass Index 30.29 02/02/2025 2:10 PM CDT Plan of Treatment Health Maintenance Due Date Last Done Comments Depression Screening 1985 Hepatitis C Screening 1985 DTaP/Tdap/Td Vaccine (1 - Tdap) 1996 Varicella Vaccines (1 of 2 - 13+ 2-dose series) 1998 Hepatitis B Screening 10/19/2003 HPV Vaccines (1 - 3-dose SCD M series) 2012 Pneumococcal vaccine <65 (2 of 2 - PCV) 05/19/2019 05/19/2018 Influenza Vaccine (#1) 2025 05/19/2018 Cervical Cancer Screening 09/15/20252024, 09/15/2024, 06/23/2018, Additional history exists Regular Well Visit/Exam 18-64 09/15/2025, 08/20/2023, 07/30/2022, Additional history exists Procedures Procedure Name Priority Date/Time Associated Diagnosis Comments HIGH RISK HPV DNA DETECTION WITH GENOTYPING Routine 09/15/2024 1:39 PM AURICULOTHERAPIST Screening for malignant neoplasm of cervix from Last 3 Months or Most Recently Relevant to Health Maintenance Results * High Risk HPV DNA Detection with Genotyping (Molecular component) (09/15/2024 1:39 PM AURICULOTHERAPIST) HPV HR 16 Not Detected Not Detected [facility] Comment:Testing performed by : [facility], [address] [place] [address] HPV HR 18 Not Detected Not Detected KATHERYN Comment:Testing performed by : [facility], [address] [place] [address] HPV HR Non 16/18 Not Detected Not [...] this test have been verified by the [facility] Molecular Infectious Disease laboratory. Correlate with separately reported cytology results, as applicable. Interpretive data last revised 23 Testing performed by: [facility], [address] [facility], [place]., [address] Endocervical 09/15/2024 1:39 PM AURICULOTHERAPIST 09/18/2024 2:17 PM CDT Narrative KATHERYN - 09/18/2024 8:24 PM CDT Clinical history and diagnosis->Liquid-based PAP test with high risk HPV test- Z12.4 Number of vials->1 Testing type->Screening Last menstrual period (date if known)->N/A Contraceptive use->IUD Princess Becerril DO LAB BODY FLUIDS AND STO OLS ORDERABLES Final Result [facility] [id number] Department of Laboratories [place], [place] [id number] [facility] from Last 3 Months or Most Recently Relevant to Health Maintenance Insurance [employer] [facility] Care Teams Photogrammetric Technician Relationship Specialty Start Date End Date Gely Osei NP [address] [place] [address] PCP - General Nurse Practitioner 01/22/25
--- OUTSIDE RECORDS SUMMARY | 2025-06-26 18:03 | XMS_ITS | Patient Health Record ---
Author Organization [facility], [facility] [email or web address] [place] ([address]) Address [address] [place] [address] Care Team Providers Care Production Supply Equipment Tender Name Role Phone Farnaz, Gely Primary Care Provider UnavailAlem Curry Unavailable [phone] Susanne NUNEZ Unavailable Unavailable Rene Browning Unavailable [phone] Russell Nunez Unavailable [phone] Brittney Mahmood Unavailable [phone] Allergies No Known Allergies Results Component Value [...] Duration) Notes Start Date End Date Status Breo Ellipta 100-25 MCG/ACT 1 puff Inhalation Once a day; Duration: 30 days 06/26/2025 Active CETIRIZINE 10 mg 1 tab(s) orally [...] once a day; Duration: 90 days Not-Taking SIT (CLUSTER) VARIABLE PER SCHEDULE SC PER SCHEDULE; Duration: TO BE DETERMINED *Please review for potential replacement for e-prescription and drug interaction check* 05/04/2022 Active KENDY-D 24 HOUR ALLERGY AND CONGESTION 180 MG-240 MG 1 TAB(S) ORALLY ONCE A DAY *Please review for potential replacement for e-prescription and drug interaction check* Not-Taking Famotidine 40 MG 1 tab(s) orally 30 mins prior to SCIT; Duration: 30 days Not-Taking Auvi-Q 0.3 MG/0.3ML as directed intramuscularly once; Duration: 30 days Active Triamcinolone Acetonide 0.1 % 1 matt applied topically 3 times a day; Duration: 7 day(s) 05/11/2022 Not-Taking PEPCID 20 mg 1 tab(s) orally 2 times a day; Duration: 30 days Active CETIRIZINE 10 mg 1 tab(s) orally twice a day; Duration: 30 days Active Cetirizine HCl 10 MG 1 tab(s) orally once a day; Duration: 30 days Not-Taking NASAL WASHES N/A as directed intranasally as needed; Duration: 30 Active AUVI -Q 0.3 mg as directed intramuscularly once; Duration: 30 days Active Olopatadine HCl 0.6 % 2 sprays in [...] Once a day; Duration: 90 days Active Cetirizine HCl 10 MG 1 tab(s) orally twice a day; Duration: 30 days Active FAMOTIDINE 40 mg 1 tab(s) orally 30 mins prior to SCIT; Duration: 30 days Not-Taking Pepcid 20 mg 1 tab(s) orally 2 times a day; Duration: 30 days Active TRIAMCINOLONE ACETONIDE TOPICAL 0.1% 1 matt applied topically 3 times a day; Duration: 7 day(s) 05/11/2022 Not-Taking OLOPATADINE NASAL 665 MCG/INH 2 SPRAY(S) [...] intramuscularly once; Duration: 30 day(s) 06/17/2022 Not-Taking AEROCHAMBER MDI SPACER - MOUTHPIECE (ADULT) N/A As directed PO Per asthma action plan; Duration: 30 day(s) Active PEPCID 20 mg 1 tab(s) orally 2 times a day; Duration: 30 days Not-Taking MONTELUKAST 10 mg 1 tab(s) orally once a day; Duration: 90 days Not-Taking Social History Tobacco Use: Social History [...] ast year? No Points 0 Interpretation Negative Problems Problem Type SNOMED Code ICD Code Onset Dates Problem Status W/U Status Risk Notes Problem Chronic allergic conjunctivitis (51252882) Other chronic allergic conjunctivitis (H10.45) Active confirmed Problem Allergic rhinitis caused by pollen (disorder) (94156389) Allergic rhinitis due to pollen (J30.1) Active confirmed Problem Allergic rhinitis (30592941) Other allergic rhinitis (J30.89) Active confirmed Problem Allergic urticaria (89655092) Allergic urticaria (L50.0) Active confirmed Problem Dysphagia (12459746) Dysphagia, unspecified (R13.10) Active confirmed Problem Allergic rhinitis caused by animal hair and dander (692891584532254) Allergic rhinitis due to animal (cat) (dog) hair and dander (J30.81) Active confirmed Problem Elevated blood pressure reading without diagnosis of hypertension (317416693) Elevated blood-pressure reading, without diagnosis of hypertension (R03.0) Active confirmed Problem Tobacco use (725759317) Tobacco use (Z72.0) Active confirmed Problem Cough (finding) (96771967) Cough, unspecified (R05.9) Active confirmed Vital Signs Blood pressure diastolic 85 mm Hg 06/26/2025 Oximetry 100 % 06/26/2025 Height 68 in 06/26/2025 Blood pressure systolic 139 mm Hg 06/26/2025 Weight 201 lbs 06/26/2025 BMI 30.56 kg/m2 06/26/2025 Encounters Encounter Location Date Provider Diagnosis [facility] [address] [facility] [address] [place] [phone] 08/21/2024 Rene Browning Allergic rhinitis du e to pollen J30.1 ; Other allergic rhinitis J30.89 ; Allergic rhinitis due to animal (cat) (dog) hair and dander J30.81 and Other chronic allergic conjunctivitis H10.45 [facility] [address] [place], [place] [address] [address] [address] 07/31/2024 Rene Browning Allergic rhinitis du e to pollen J30.1 ; Other allergic rhinitis J30.89 ; Allergic rhinitis due to animal (cat) (dog) hair and dander J30.81 and Other chronic allergic conjunctivitis H10.45 [facility] [address] [place] [address] [employer] [address] [address] 06/05/2025 Rene Browning Allergic rhinitis du e to pollen J30.1 ; Other allergic rhinitis J30.89 ; Allergic rhinitis due to animal (cat) (dog) hair and dander J30.81 and Other chronic allergic conjunctivitis H10.45 [facility] [address] [place] [address] [employer] [address] [address] 05/08/2025 Rene Browning Allergic rhinitis du e to pollen J30.1 ; Other allergic rhinitis J30.89 ; Allergic rhinitis due to animal (cat) (dog) hair and dander J30.81 and Other chronic allergic conjunctivitis H10.45 [facility] [address] [place] [address] [employer] [address] [address] 03/20/2025 Rene Browning Allergic rhinitis du e to pollen J30.1 ; Other allergic rhinitis J30.89 ; Allergic rhinitis due to animal (cat) (dog) hair and dander J30.81 and Other chronic allergic conjunctivitis H10.45 [facility] [address] [place] [address] [employer] [address] [address] 02/28/2025 Rene Nam Allergic rhinitis du e to pollen J30.1 ; Other allergic rhinitis J30.89 ; Allergic rhinitis due to animal (cat) (dog) hair and dander J30.81 and Other chronic allergic conjunctivitis H10.45 [facility] [address] [place], [place] [address] [address] [place] [phone] 01/31/2025 Rene Nam Allergic rhinitis du e to pollen J30.1 ; Other allergic rhinitis J30.89 ; Allergic rhinitis due to animal (cat) (dog) hair and dander J30.81 and Other chronic allergic conjunctivitis H10.45 [facility] [address] [place], [place] [address] [address] [place] [phone] 01/03/2025 Rene Browning Allergic rhinitis du e to pollen J30.1 ; Other allergic rhinitis J30.89 ; Allergic rhinitis due to animal (cat) (dog) hair and dander J30.81 and Other chronic allergic conjunctivitis H10.45 [facility] [address] [place], [place] [address] [address] [address] 12/05/2024 Rene Browning Allergic rhinitis du e to pollen J30.1 ; Other allergic rhinitis J30.89 ; Allergic rhinitis due to animal (cat) (dog) hair and dander J30.81 and Other chronic allergic conjunctivitis H10.45 [facility] [address] [place], [place] [address] [address] [place] [phone] 11/13/2024 Rene Browning Allergic rhinitis du e to pollen J30.1 ; Other allergic rhinitis J30.89 ; Allergic rhinitis due to animal (cat) (dog) hair and dander J30.81 and Other chronic allergic conjunctivitis H10.45 [facility] [address] [place], [place] [address] [address] [address] 10/16/2024 Rene Browning Allergic rhinitis du e to pollen J30.1 ; Other allergic rhinitis J30.89 ; Allergic rhinitis due to animal (cat) (dog) hair and dander J30.81 and Other chronic allergic conjunctivitis H10.45 [facility] [address] [place], [place] [address] [address] [place] [phone] 10/09/2024 Rene Browning Allergic rhinitis du e to pollen J30.1 ; Other allergic rhinitis J30.89 ; Allergic rhinitis due to animal (cat) (dog) hair and dander J30.81 and Other chronic allergic conjunctivitis H10.45 [facility] [address] [place], [place] [address] [address] [place] [phone] 10/03/2024 Rene Browning Allergic rhinitis du e to pollen J30.1 ; Other allergic rhinitis J30.89 ; Allergic rhinitis due to animal (cat) (dog) hair and dander J30.81 and Other chronic allergic conjunctivitis H10.45 [facility] [address] [place], [place] [address] [address] [place] [phone] 06/26/2025 Alem Fabian Allergic rhinitis du e to pollen J30.1 ; Allergic rhinitis due to animal (cat) (dog) hair and dander J30.81 ; Other allergic rhinitis J30.89 ; Other chronic allergic conjunctivitis H10.45 ; Allergic urticaria L50.0 ; Cough, unspecified R05.9 ; Dysphagia, unspecified R13.10 and Elevated blood-pressure reading, without diagnosis of hypertension R03.0 [facility] [address] [place] [address] [employer] [address] [phone] 04/17/2025 Alem Fabian Allergic rhinitis du e to pollen J30.1 ; Allergic rhinitis due to animal (cat) (dog) hair and dander J30.81 ; Other allergic rhinitis J30.89 ; Other chronic allergic conjunctivitis H10.45 ; Allergic urticaria L50.0 ; Cough, unspecified R05.9 ; Dysphagia, unspecified R13.10 and Elevated blood-pressure reading, without diagnosis of hypertension R03.0 [facility] [address] [place] [address] [employer] [address] [phone] 10/23/2024 Russell Nunez Allergic rhinitis du e to pollen J30.1 ; Allergic rhinitis due to animal (cat) (dog) hair and dander J30.81 ; Other allergic rhinitis J30.89 ; Other chronic allergic conjunctivitis H10.45 ; Allergic urticaria L50.0 ; Cough, unspecified R05.9 ; Dysphagia, unspecified R13.10 and Elevated blood-pressure reading, without diagnosis of hypertension R03.0 [facility] [address] [place] [address] [employer] [address] [phone] 09/18/2024 Rene Browning Allergic rhinitis du e to pollen J30.1 ; Other allergic rhinitis J30.89 ; Allergic rhinitis due to animal (cat) (dog) hair and dander J30.81 and Other chronic allergic conjunctivitis H10.45 [facility] [address] [place] [address] 12/27/2024 Alem Fabian Allergic urticaria L50.0 [facility] [address] [place] [address] 11/09/2024 Russell Nunez [facility] [address] [place] [address] 10/16/2024 Russell Nunez Assessments Encounter Date Diagnosis (ICD Code) Assessment Notes Treatment Notes Treatment Clinical Notes Section Notes 07/31/2024 Allergic rhinitis due to pollen (ICD-10 [...] rhinitis due to pollen (ICD-10 - J30.1) 01/31/2025 Allergic rhinitis due to pollen (ICD-10 - J30.1) 02/28/2025 Allergic rhinitis due to pollen (ICD-10 - J30.1) 03/20/2025 Allergic rhinitis due to pollen (ICD-10 - J30.1) 04/17/2025 Allergic rhinitis due to pollen (ICD-10 - J30.1) Ijeoma clearly suffers from atopic disease based upon our skin testing. Accordingly, we have encouraged her medication regimen, discussed nasal washes and allergy-specific avoidance measures. - Ijeoma continues SCIT at . She tolerated dosing today without issue. AIE is on hand. - Continue medication regimen as above. - Ijeoma reports a small, raised blister that has occurred twice on her left forearm. She states it becomes bruised after and lasts for days. This occurs one week after SCIT. Timeline is atypical. Ijeoma is to journal and take photos if symptoms recur. - Increase SCIT frequency in peak seasons PRN. - Return in 2-3 months for further evaluation and management 04/17/2025 Allergic rhinitis due to animal (cat) (dog) hair and dander (ICD-10 - J30.81) Follow allergen avoidance, meds and continue SCIT as an adjunctive treatment to current regimen 05/08/2025 Allergic rhinitis due to pollen (ICD-10 - J30.1) 06/05/2025 Allergic rhinitis due to pollen (ICD-10 - J30.1) 06/26/2025 Allergic rhinitis due to pollen (ICD-10 [...] as an adjunctive treatment to current regimen 06/05/2025 Other allergic rhinitis (ICD-10 - J30.89) 05/08/2025 Other allergic rhinitis (ICD-10 - J30.89) 12/05/2024 Other allergic rhinitis (ICD-10 - J30.89) 04/17/2025 Other allergic rhinitis (ICD-10 - J30.89) Follow allergen avoidance, meds and continue SCIT as an adjunctive treatment to current regimen 03/20/2025 Other allergic rhinitis (ICD-10 - J30.89) 02/28/2025 Other allergic rhinitis (ICD-10 - J30.89) 01/31/2025 Other allergic rhinitis (ICD-10 - J30.89) 01/03/2025 [...] 07/31/2024 Other allergic rhinitis (ICD-10 - J30.89) 07/31/2024 Allergic rhinitis due to animal (cat) [...] (dog) hair and dander (ICD-10 - J30.81) 01/31/2025 Allergic rhinitis due to animal (cat) (dog) hair and dander (ICD-10 - J30.81) 02/28/2025 Allergic rhinitis due to animal (cat) (dog) hair and dander (ICD-10 - J30.81) 04/17/2025 Other chronic allergic conjunctivitis (ICD-10 - H10.45) Given ocular signs and symptoms I encouraged allergy avoidance measures and meds as above. If symptoms persist, consider adding additional medications including intraocular antihistamine/mast cell stabilizer, PRN and continue SCIT as an adjunctive measure 03/20/2025 Allergic rhinitis due to animal (cat) (dog) hair and dander (ICD-10 - J30.81) 05/08/2025 Allergic rhinitis due to animal (cat) (dog) hair and dander (ICD-10 - J30.81) 06/26/2025 Other chronic allergic conjunctivitis (ICD-10 - H10.45) Given ocular signs and symptoms I encouraged allergy avoidance measures and meds as above. If symptoms persist, consider adding additional medications including intraocular antihistamine/mast cell stabilizer, PRN and continue SCIT as an adjunctive measure 06/05/2025 Allergic rhinitis due to animal (cat) (dog) hair and dander (ICD-10 - J30.81) 05/08/2025 Other chronic allergic conjunctivitis (ICD-10 - H10.45) 06/26/2025 Allergic urticaria (ICD-10 - L50.0) Recurring [...] 2 months for further evaluation and management 06/05/2025 Other chronic allergic conjunctivitis (ICD-10 - H10.45) 04/17/2025 Allergic urticaria (ICD-10 - L50.0) Recurring episodes [...] BID and Singulair 10 mg at night. - Consider obtaining labs, which we briefly discussed today. Discuss further next visit. - Journal for triggers. - Return in 2 months for further evaluation and management 03/20/2025 Other chronic allergic conjunctivitis (ICD-10 - H10.45) 02/28/2025 Other chronic allergic conjunctivitis (ICD-10 - H10.45) 01/03/2025 Other chronic allergic conjunctivitis (ICD-10 - H10.45) 01/31/2025 Other chronic allergic conjunctivitis (ICD-10 - H10.45) [...] chronic allergic conjunctivitis (ICD-10 - H10.45) 10/23/2024 Cough, unspecified (ICD-10 - R05.9) Cough [...] If issues persist would consider referral to [facility] for concern of VCD but she would like to hold off for now. Ocerall reprots minimal lower airway syptoms at the moment with minimal SIMONE use. Spirometry is otherwise normal today. Continue PRN VCD exercises 04/17/2025 Cough, unspecified (ICD-10 - R05.9) Cough in [...] also noted on last spiromtery. - Ijeoma has continued using vocal cord exercises PRN. She also has Dulera on-hand, which she also uses PRN. - Last spirometry obtained showed normal FEV1, FVC and FEV%. - Continue SIMONE and Dulera PRN. Ijeoma is to contact the office with increased use 06/26/2025 Cough, unspecified (ICD-10 - R05.9) Cough [...] as well. Would consider establishing with GI 04/17/2025 Dysphagia, unspecified (ICD-10 - R13.10) Reported dysphagia with sold foods. Reports father has history of esophageal cancer and is concerned given smoking history as well. Would consider establishing with GI 10/23/2024 Dysphagia, unspecified (ICD-10 - R13.10) Reported dysphagia with sold foods. Reports father has history of esophageal cancer and is concerned given smoking history as well. Would consider establishing with GI 10/23/2024 Elevated blood-pressure reading, without diagnosis of hypertension (ICD-10 - R03.0) BP elevated today without symptoms of urgency or emergency. Continue serial checks and follow-up with PCP 04/17/2025 Elevated blood-pressure reading, without diagnosis of hypertension (ICD-10 - R03.0) BP elevated today without symptoms of urgency or emergency. Continue serial checks and follow-up with PCP 06/26/2025 Elevated blood-pressure reading, without diagnosis of hypertension (ICD-10 - R03.0) BP elevated today without symptoms of urgency or emergency. Continue serial checks and follow-up with PCP 10/23/2024 Other 04/17/2025 Other 06/26/2025 Other Plan Of Treatment Pending Test Test Name Order Date Spirometry 06/26/2025 Next Appt Details Provider Name:Rene HJeb Browning , 07/02/2025 08:10:00 AM, [address] [place] [address], [phone], Provider Name:Rene AhmetJeb Browning , 07/09/2025 07:40:00 AM, [address], [address] [place] [address], [phone], Provider Name:Rene Browning , 07/31/2025 07:30:00 AM, [address], [address] [place] [address], [phone], Provider Name:Alem sotelo, 08/20/2025 04:00:00 PM, [address], [address] [place] [address], [phone], Insurance Providers Payer Name Payer Address Payer Phone Subscriber Number Group Number Insured Name Patient Relationship to Insured Coverage Start Date Coverage End Date [facility] ([place] [facility] [address] [place] [address] [id number] Ijeoma Treadwell Self - patient is the [...]
--- OUTSIDE RECORDS SUMMARY | 2025-06-26 18:03 | XMS_ITS | Clinical Summary ---
Author Organization [facility] Address [address], [facility] [address] [place] [address] Phone Care Team Providers Care Patternmaker Grader Name Role Phone Osei, Gely CHOUDHARY CNP Primary Care Provider [phone] Allergies No known active allergies Medications buPROPion (WELLBUTRIN) 150 MG XL tablet TK 1 T PO QD 3 04/14/2018 Active fexofenadine (KENDY) 180 MG Tablet Take by mouth. Active Cholecalciferol (VITAMIN D) 2000 UNIT Tablet Take by mouth. Active chlorhexidine (HIBICLENS) 4 % Liquid Apply 1 mL daily. 240 mL 11 05/03/2018 Active HYDROcodone-tata taminophen (NORCO) 5-325 MG TabletIndicatio ns:Abscess Take 1 Tab by mouth every 4 hours as needed for Moderate or more severe pain. 12 Tab 05/23/2018 Active ondansetron (ZOFRAN) 4 MG Tablet Take 1 Tab by mouth every 8 hours as needed for Nausea - 1st line. 10 Tab 08/18/2018 Active LORazepam (ATIVAN) 1 MG Tablet Take 1 Tab by mouth every 8 hours as needed for Anxiety. 10 Tab 08/18/2018 Active Active Problems No known active problems Immunizations Immunization Administration Dates Next Due Influenza Vaccine greater than 3 yrs 05/19/2018 Social History Tobacco Use Types Packs/Day Years Used Date Smoking Tobacco: Every Day Cigarettes Smokeless Tobacco: Never Alcohol Use Standard Drinks/Week Comments Yes 0 (1 standard drink = 0.6 oz pur e alcohol) occassional Comments No Sex and Gender Information Value Date Recorded Sex Assigned at Not on file Legal Sex Female 12:07 AM CDT Gender Identity Not on file Sexual Orientation Not on file Last Filed Vital Signs Vital Sign Reading Time Taken Comments Blood Pressure 115/75 08/18/2018 1:00 PM GREENHOUSE TECHNICIAN Pulse 79 08/18/2018 1:00 PM GREENHOUSE TECHNICIAN Temperature 37.2 C (99 F) 08/18/2018 11:04 AM GREENHOUSE TECHNICIAN Respiratory Rate 18 08/18/2018 11:04 AM GREENHOUSE TECHNICIAN Oxygen Saturation 100% 08/18/2018 1:00 PM GREENHOUSE TECHNICIAN Inhaled Oxygen Concentration - - Weight 72.6 kg (160 lb) 08/18/2018 11:04 AM GREENHOUSE TECHNICIAN Height 172.7 cm (5' 8) 08/18/2018 11:04 AM GREENHOUSE TECHNICIAN Body Mass Index 24.33 08/18/2018 11:04 AM GREENHOUSE TECHNICIAN Plan of Treatment Health Maintenance Due Date Last Done Comments Hepatitis C Virus (HCV) Screening 1985 TdaP Immunization 1985 Varicella Immunization (1 of 2 - 13+ 2-dose series) 1998 Hepatitis B Immunization (1 of 3 - 19+ 3-dose series) 2004 Pap Smear 2006 Cervical Cancer Screening (CCS) 10/19/2015 HPV/Cotest 10/19/2015 Influenza Immunization (#1) 2025 05/19/2018 SARS-COV-2 Immunization (2024- season) 2025 Respiratory Syncytial Virus (RSV) Immunization (Adult) (1 - 1-dose 75+ series) 2060 Human Papillomavirus (HPV) Immunization (No Doses Required) Completed Meningococcal Immunization (ACWY) Aged Out No longer eligible based on patient's age to complete this topic Pneumococcal Immunization Combined Aged Out No longer eligible based on patient's age to complete this topic Rotavirus Immunization Aged Out No lo nger eligible based on patient's age to complete this topic Insurance [facility] Care Teams Patternmaker Grader Relationship Specialty Start Date End Date Gely Osei APRN, JESSICA PCP - General Family Medicine 04/26/18
--- OUTSIDE RECORDS SUMMARY | 2025-06-26 18:03 | XMS_ITS | Clinical Summary ---
Author Organization [facility] lin Address [address] [place] [address] Care Team Providers Care Hand Endband Cutter Name Role Phone Unavailable Primary Care Provider Unavailabl e Social History Tobacco Use Types Packs/Day Years Used Date Smoking Tobacco: Never Assessed Comments Unknown Sex and Gender Information Value Date Recorded Sex Assigned at Not on file Legal Sex Female 6:50 PM EST Gender Identity Not on file Sexual Orientation Not on file Plan of Treatment Not on file Medical Devices Not on file
== END 2025-06-26 17:38 | disposition home or self-care (01) ==
LOC: ANHED 17:28
PROVIDERS: Emergency Provider Emergency Medicine; PCP Nurse Practitioner Family
DX: S04.32XA Injury of trigeminal nerve, left side, initial encounter (principal); F17.210 Nicotine dependence, cigarettes, uncomplicated; X58.XXXA Exposure to other specified factors, initial encounter
CPT/HCPCS: 99283